=== PATIENT | female | born 1970 | race Caucasian/White ===

== ENCOUNTER 2020-10-08 13:36 | Outpatient (CLI) | payer MEDICAID, SELFPAY ==
--- NOTE | 2020-10-08 13:44 | MM_ITS ---
WS: [id number] BILATERAL DIGITAL SCREENING MAMMOGRAPHY WITH CAD CLINICAL INFORMATION: SCREENING HISTORY: Screening mammogram. No current complaints. COMPARISON: and TECHNIQUE: Bilateral CC and MLO views. FINDINGS: Palpable marker upper outer left breast. The breasts are composed of heterogeneous fibroglandular density tissue, which can limit the detectio n of small underlying mass lesions. Stable small approximately 1 cm nodule right breast unchanged in appearance previously demonstrated t o represent a cyst. Small surrounding nodular densities are unchanged. In the area of palpable concern upper outer left breast increased isodense nodules measuring 1.5 x 1. 5 CM and 2.6 x 2.5 cm with dense surrounding parenchymal density. Recommend further evaluation with l eft breast diagnostic mammography and ultrasound. MM/[place] [id number] IMPRESSION: BI-RADS: 0-Incomplete: Need additional imaging evaluation FOLLOW UP: Need Additional Imaging RECOMMEND LEFT BREAST DIAGNOSTIC MAMMOGRAPHY AND ULTRASOUND IN THE AREA OF PALP ABLE CONCERN LEFT BREAST
== END 2020-10-08 13:37 | disposition home or self-care (01) ==
LOC: RADSHAW 13:42
PROVIDERS: PCP Family Medicine; Visit Provider Internal Medicine
DX: Z12.31 Encounter for screening mammogram for malignant neoplasm of breast (principal); N63.21 Unspecified lump in the left breast, upper outer quadrant
CPT/HCPCS: 77067

== ENCOUNTER → 2020-11-22 10:03 | Outpatient (BNVA) | payer MEDICAID, SELFPAY | PROVIDERS: PCP Nurse Practitioner Family; Referring Provider Anesthesiology Pain Medicine; Visit Provider Orthopaedic Surgery | DX: M47.892 Other spondylosis, cervical region (principal); M54.2 Cervicalgia | CPT/HCPCS: 72050 ==

== ENCOUNTER 2020-11-26 09:25 | Outpatient (CLI) | payer MEDICAID, SELFPAY ==
--- NOTE | 2020-11-26 09:27 | US_ITS ---
WS: [id number] LEFT DIGITAL MAMMOGRAPHY WITH CAD CLINICAL INFORMATION: LT BREAST MASS/LUMP TECHNIQUE: 3 views of the left breast were obtained. FINDINGS: The left breast is composed of heterogeneous fibroglandular density tissue, which can limit the detec tion of small underlying mass lesions. In the area of Palpable concern upper outer left breast again seen are isodense nodules largest measu ring 2.5 x 2.6 cm with dense surrounding parenchymal tissue. Ultrasound is pending. ULTRASOUND BREAST LEFT TECHNIQUE: Ultrasound left breast focused area of concern. CLINICAL INFORMATION: LT BREAST MASS/LUMP COMPARISON: None. FINDINGS: Ultrasound left breast at the 2:00 position. Multiple underlying breast cysts are visualized. Largest simple cyst at the 2:00 position 5 cm from the nipple measuring 2.1 x 2.0 x 0.9 CM. Additional complex cyst at the 2:00 position 4 cm from the nipple measuring 1.7 x 1.5 x 1.1 cm with s ome internal debris. Recommend 6 month interval follow-up of the complex breast cyst with internal debris. Remainder of th e cysts are simple cysts and benign. US/US breast LT limited* [id number] IMPRESSION: BI-RADS: 3-Probably Benign FOLLOW UP: 6 Month Follow-up RECOMMEND 6 MONTH INTERVAL FOLLOW-UP LEFT DIAGNOSTIC MAMMOGRAPHY AND ULTRASOUND OF THE 2.0 CM COMPLEX BREAST CYST WITH INTERNAL DEBRIS.
== END 2020-11-26 09:26 | disposition home or self-care (01) ==
LOC: RADSHAW 09:26
PROVIDERS: PCP Nurse Practitioner Family; Visit Provider Nurse Practitioner Family
DX: N63.20 Unspecified lump in the left breast, unspecified quadrant (principal); N60.02 Solitary cyst of left breast
CPT/HCPCS: 76642; 77065

== ENCOUNTER → 2020-11-29 15:12 | Outpatient (BNVA) | payer MEDICAID, SELFPAY | PROVIDERS: PCP Nurse Practitioner Family; Visit Provider Psychiatry & Neurology Neurology | DX: M54.2 Cervicalgia (principal); G56.01 Carpal tunnel syndrome, right upper limb; Z87.891 Personal history of nicotine dependence | CPT/HCPCS: 95885; 95908 ==

== ENCOUNTER → 2021-03-14 11:55 | Outpatient (BNVA) | payer MEDICAID, SELFPAY | PROVIDERS: PCP Nurse Practitioner Family; Visit Provider Nurse Practitioner Family | DX: Z20.822 Contact with and (suspected) exposure to COVID-19 (principal); J06.9 Acute upper respiratory infection, unspecified; Z20.828 Contact with and (suspected) exposure to other viral communicable diseases | CPT/HCPCS: 87635 ==

== ENCOUNTER 2021-03-15 14:59 | Emergency (ER) | payer MEDICAID, SELFPAY ==
--- NOTE | 2021-03-15 15:35 | XRR_ITS ---
PROCEDURE INFORMATION: Exam: XR Chest Exam date and time: 03/15/2021 3:35 PM Age: 50 years old Clinical indication: Shortness of breath; Patient HX: SOB, cough, n/v; Additional info: SOB, covid TECHNIQUE: Imaging protocol: XR of the chest. Views: 1 view. COMPARISON: CR Chest 1 [place] [id number] 07/17/2018 11:24 AM FINDINGS: Lungs: Unremarkable. No consolidation. Pleural spaces: Unremarkable. No pleural effusion. No pneumothorax. Heart/Mediastinum: Unremarkable. No cardiomegaly. Bones/joints: Unremarkable. XR/XR chest 1V portable [id number] IMPRESSION: No acute findings.
[2021-03-15 15:40] VITALS: BP 125/88; PULSE 91; RESP 16; TEMP 37.3; O2SAT 96; BMI 43.0
--- NOTE | 2021-03-15 21:21 | W.ED.NAVMDI ---
HPI - Nausea/Vomiting/Diarrhea General: Chief complaint: Nausea/Vomiting/Diarrhea Stated complaint: COVID +:SOB, N/V/D Time Seen by Provider: 03/15/21 21:18 History of Present Illness: HPI Narrative: 50-year-old diagnosed with COVID-19 yesterday. She has been having nausea vomiting and diarrhea for about 5 days now. She has been taking Tylenol for fevers and body aches as well. She says that she has had so much diarrhea she cannot make it to the bathroom on time. Her stomach is cramping significantly as well. MD elicited complaint: nausea, vomiting and diarrhea Pertinent past history: other Onset (ago): day(s) Description of vomiting: watery Description of diarrhea: watery Associated nausea: Yes Associated abdominal pain: Yes Location of pain: Diffuse Radiation: diffuse Pain consistency: intermittent Severity: moderate Quality: cramping Relieving factors: none Associated symtoms: Reports fatigue, fecal incontinence, fevers/chills, headache(s), nausea and weakness (General); Denies chest pain, cough or short of breath Review of Systems Const: Reports: fever(s), chills, body aches and fatigue Card: Denies: chest pain Resp: Denies: dyspnea or productive cough GI: Reports: abdominal pain, nausea, vomiting, diarrhea and fecal incontinence; Denies: hematochezia Neuro: Reports: headache(s) PFSH ED PFSH: Family History Mother Diabetes Hypertension Father Lung disease Social History Smoking and tobacco status: former smoker Alcohol intake: never Physical Exam Const: GENERAL APPEARANCE: cooperative and ill appearing ORIENTATION/CONSCIOUSNESS: Yes oriented to person, Yes oriented to place and Yes oriented to time HENMT: COMMON NORMALS: normocephalic, external ears normal and Normal external nose present HEAD & SCALP: normocephalic FACE & SINUS: normal facial exam NOSE: Normal external nose present and No nasal discharge present EXTERNAL EAR: Yes external ears normal Eye: COMMON NORMALS: Equal, round and reactive pupils present, EOMs intact bilaterally and conjunctivae normal EYELID: eyelids normal CONJUNCTIVA: Yes conjunctivae normal PUPIL: Yes Equal, round and reactive pupils present Neck/C-Spine: GENERAL: No tracheal deviation Chest: COMMONS NORMALS: normal inspection of the chest CHEST: No tenderness Resp: COMMON NORMALS: clear to auscultation bilaterally EFFORT & INSPECTION: No tachypneic, No respiratory distress, No retractions, No uses accessory muscles and No tracheal deviation AUSCULTATION: clear to auscultation bilaterally, no rhonchi, no wheezes and lung sounds not diminished Cardio: COMMON NORMALS: regular rate and regular rhythm RATE: regular rate RHYTHM: regular rhythm HEART SOUNDS: no murmurs PERIPHERAL PULSES: radial pulses present GI: INSPECTION: No abdominal distension AUSCULTATION: Yes Hyperactive bowel sounds present and No Hypoactive bowel sounds present PALPATION: Yes Guarding due to palpation present (GI) and No Rigid due to palpation Neuro: SENSORIUM/ORIENTATION: Yes oriented to person, Yes oriented to place and Yes oriented to time Psych: COMMON NORMALS: mental status grossly normal Skin: COMMON NORMALS: no rashes or lesions noted GENERAL SKIN EXAM: no rashes or lesions noted Course Vital Signs: Vital signs: Vital Signs Temperature 99.2 F 03/15/21 15:40 Pulse Rate 91 03/15/21 15:40 Respiratory Rate 20 H 03/15/21 22:10 Blood Pressure 125/88 03/15/21 15:40 Pulse Oximetry 96 03/15/21 15:40 MDM - Nausea/Vomiting/Diarrhea MDM Narrative: Medical decision making narrative: Labs are consistent with COVID-19. Chest x-ray is negative. Symptoms are improved after fluid. She will be allowed home. As she meets obesity criteria, she will be asked to return as an outpatient for monoclonal antibody infusion should she choose to do so. Symptomatic treatment until then. Lab Data: Labs: Lab Results 03/15/21 03/15/21 Range/Units 21:50 21:50 WBC 3.0 L (4.0-10.0) 10^3/ uL RBC 3.58 L (4.1-5.3) 10^6/u L Hgb 9.7 L (11.5-15.3) g/dL Hct 32.4 L (37.0-47.0) % MCV 90.5 (81-99) fL MCH 27.1 L (28.0-34.0) pg MCHC 29.9 L (30.0-36.0) g/dL RDW 15.1 (12.1-15.1) % Plt Count 280 (130-400) 10^3/c mm MPV 9.7 (7.4-10.4) fL Neut % (Auto) 69.0 % Lymph % (Auto) 20.2 % [place] % (Auto) 9.9 % Eos % (Auto) 0.3 % Baso % (Auto) 0.3 % Neut # (Auto) 2.08 (1.8-7.7) 10^3/u L Lymph # (Auto) 0.6 L (0.8-4.8) 10^3/u L [place] # (Auto) 0.3 (0.2-0.9) 10^3/u L Eos # (Auto) 0.0 (0.0-0.8) 10^3/u L Baso # (Auto) 0.0 (0.0-0.1) 10^3/u L Nucleated RBC % (a uto) 0 % Nucleated RBCs # 0.0 /100WBC Sodium 137 (136-145) mmol/L Potassium 3.9 (3.5-5.1) mmol/L Chloride 104 (98-107) mmol/L Carbon Dioxide 21 L (22-29) mmol/L Anion Gap 15.9 (5-19) BUN 8 (6-20) mg/dL Creatinine 1.0 H (0.5-0.9) mg/dL GFR Calculation 58.9 L (90-130) mL/min Glucose 130 H (65-115) mg/dL Calculated Osmolal ity 284 L (285-295) mOsm/k g Calcium 8.3 L (8.5-10.5) mg/dL Total Bilirubin 0.3 (0.15-1.2) mg/dL AST 48 H (0-32) U/L ALT 42 H (0-33) U/L Alkaline Phosphata se 66 (35-105) IU/L Total Protein 7.1 (6.6-8.7) g/dL Albumin 3.9 (3.5-5.2) g/dL Globulin 3.2 (1.3-4.6) g/dL Discharge Plan Discharge Patient Disposition: Home Clinical Impression: COVID-19, Gastroenteritis Condition: Stable Prescriptions: New Lomotil 2.5-0.025 mg tablet 1 tab PO Q8H PRN (Reason: diarrhea) Qty: 10 RF: 0 Zofran 4 mg tablet 4 mg PO Q6H PRN (Reason: nausea and vomiting) Qty: 10 RF: 0 hydrocodone-acetaminophen 5-325 mg tablet 1 tab PO Q8H PRN (Reason: pain) Qty: 7 RF: 0 Discharge Orders: Discharge ED (Routine); Ordered 03/15/21 Ordered By: Nando Munson Referrals: Mar Jose ASSISTANT BASKETBALL COACH [Primary Care Provider] - 4-7 days Discharge Diet: Advance as tolerated Discharge Activity: Resume usual activity Patient Instructions: Gastroenteritis (ED) Activity Restrictions/Additional Instructions: You should get a call from our case management team regarding coming back as an outpatient for monoclonal antibody infusion. Symptomatic treatment with medications as directed. Return for worsening shortness of breath, worsening diarrhea and vomiting despite treatment, other concerning symptoms. Coding Level of Care Code ED Telecommunication Lines Repairer for [place] Fwd Exam Comprehensive
[2021-03-15 22:00] VITALS: BP 149/76; PULSE 89; RESP 18; O2SAT 94
[2021-03-15 22:08] LABS: Basophils % 0.3 %; Eosinophils % 0.3 %; Hematocrit 32.4 % (37.0-47.0); Hemoglobin 9.7 g/dL (11.5-15.3); Lymphocytes # 0.6 10^3/uL (0.8-4.8); Lymphocytes % 20.2 %; Mean Corpuscular HGB Conc 29.9 g/dL (30.0-36.0); Mean Corpuscular Hemoglobin 27.1 pg (28.0-34.0); Mean Corpuscular Volume 90.5 fL (81-99); Mean Platelet Volume 9.7 fL (7.4-10.4); Monocytes # 0.3 10^3/uL (0.2-0.9); Monocytes % 9.9 %; Neutrophils # 2.08 10^3/uL (1.8-7.7); Nucleated Red Blood Cells % 0 %; Platelet Count 280 10^3/cmm (130-400); Red Blood Count 3.58 10^6/uL (4.1-5.3); Red Cell Distribution Width 15.1 % (12.1-15.1)
[2021-03-15 22:10] VITALS: RESP 20
[2021-03-15] MEDS: morphine 4 mg/mL SDV 1 mL IVP (22:10)
[2021-03-15] MEDS: sodium chloride 0.9% 1,000 ML 999 ML IV (22:10)
[2021-03-15] MEDS: ondansetron 2 mg/ML SDV 2 mL 4 MG IVP (22:11)
[2021-03-15 22:24] LABS: Alanine Aminotransferase 42 U/L (0-33); Albumin Level 3.9 g/dL (3.5-5.2); Alkaline Phosphatase 66 IU/L (35-105); Anion Gap 15.9 (5-19); Aspartate Amino Transferase 48 U/L (0-32); Blood Urea Nitrogen 8 mg/dL (6-20); Calcium 8.3 mg/dL (8.5-10.5); Carbon Dioxide 21 mmol/L (22-29); Chloride 104 mmol/L (98-107); Globulin 3.2 g/dL (1.3-4.6); Glomerular Filtration Rate 58.9 mL/min (90-130); Glucose 130 mg/dL (65-115); Osmolality Calculated 284 mOsm/kg (285-295); Potassium 3.9 mmol/L (3.5-5.1); Sodium 137 mmol/L (136-145); Total Bilirubin 0.3 mg/dL (0.15-1.2); Total Protein 7.1 g/dL (6.6-8.7)
--- NOTE | 2021-03-15 23:15 | PC.NURSE ---
patient has declined MCA therapy
[2021-03-15 23:44] VITALS: BP 114/60; PULSE 105; RESP 18; TEMP 37.7; O2SAT 93
== END 2021-03-15 23:57 | disposition home or self-care (01) ==
PROVIDERS: Nurse Practitioner Family; Emergency Provider Emergency Medicine; PCP Nurse Practitioner Family
DX: U07.1 COVID-19 (principal); K52.9 Noninfective gastroenteritis and colitis, unspecified; E66.9 Obesity, unspecified; Z68.41 Body mass index [BMI] 40.0-44.9, adult
CPT/HCPCS: 71045; 80053; 85025; 96365; 96375; 99284; J2270; J2405; J7030

== ENCOUNTER 2021-08-15 12:11 | Outpatient (CLI) | payer MEDICAID, SELFPAY ==
--- NOTE | 2021-08-15 12:32 | MM_ITS ---
WS: [id number] LEFT DIGITAL MAMMOGRAPHY WITH CAD CLINICAL INFORMATION: ABNORMAL MAMMO/NODULES COMPARISON: November 26, 2020 TECHNIQUE: 4 views of the left breast were obtained. FINDINGS: The left breast is composed of heterogeneous fibroglandular density tissue, which can limit the detec tion of small underlying mass lesions. Ovoid nodules upper outer left breast in the area of palpable concern decreased in size compared to previous. Ultrasound is pending. ULTRASOUND BREAST LEFT TECHNIQUE: Ultrasound left breast focused area of concern. CLINICAL INFORMATION: ABNORMAL MAMMO/NODULES COMPARISON: November 26, 2020 FINDINGS: Previously described complex cyst at 2:00 position 5 cm from the nipple has resolved. Incidental cyst 2:00 position 3 cm from the nipple measuring 0.8 x 0.6 cm Additional simple appearing cyst today at the 1:00 position 1cm from the nipple measuring 1.5 x 0.7 x 1.1 cm Hypoechoic lesion at the 1:00 position 3 cm from the nipple not definitely cystic measuring 0.7 x 0.5 x 0.5 CM. This may represent a complex cyst and recommend 6 month follow-up ultrasound MM/[place] [id number] IMPRESSION: BI-RADS: 3-Probably Benign FOLLOW UP: 6 Month Follow-up RECOMMEND 6 MONTH FOLLOW-UP ULTRASOUND LEFT BREAST WITH ATTENTION TO THE 1:00 L ESION 3 CENTIM[facility]ERS FROM THE NIPPLE SEEN TODAY
--- NOTE | 2021-08-15 12:41 | US_ITS ---
WS: [id number] LEFT DIGITAL MAMMOGRAPHY WITH CAD CLINICAL INFORMATION: ABNORMAL MAMMO/NODULES COMPARISON: November 26, 2020 TECHNIQUE: 4 views of the left breast were obtained. FINDINGS: The left breast is composed of heterogeneous fibroglandular density tissue, which can limit the detec tion of small underlying mass lesions. Ovoid nodules upper outer left breast in the area of palpable concern decreased in size compared to previous. Ultrasound is pending. ULTRASOUND BREAST LEFT TECHNIQUE: Ultrasound left breast focused area of concern. CLINICAL INFORMATION: ABNORMAL MAMMO/NODULES COMPARISON: November 26, 2020 FINDINGS: Previously described complex cyst at 2:00 position 5 cm from the nipple has resolved. Incidental cyst 2:00 position 3 cm from the nipple measuring 0.8 x 0.6 cm Additional simple appearing cyst today at the 1:00 position 1cm from the nipple measuring 1.5 x 0.7 x 1.1 cm Hypoechoic lesion at the 1:00 position 3 cm from the nipple not definitely cystic measuring 0.7 x 0.5 x 0.5 CM. This may represent a complex cyst and recommend 6 month follow-up ultrasound US/US breast LT limited* [id number] IMPRESSION: BI-RADS: 3-Probably Benign FOLLOW UP: 6 Month Follow-up RECOMMEND 6 MONTH FOLLOW-UP ULTRASOUND LEFT BREAST WITH ATTENTION TO THE 1:00 L ESION 3 [facility]IM[facility]ERS FROM THE NIPPLE SEEN TODAY
== END 2021-08-15 12:12 | disposition home or self-care (01) ==
LOC: RADSHAW 12:17
PROVIDERS: PCP Nurse Practitioner Family; Visit Provider Nurse Practitioner Family
DX: R92.8 Other abnormal and inconclusive findings on diagnostic imaging of breast (principal); N63.22 Unspecified lump in the left breast, upper inner quadrant
CPT/HCPCS: 76642; 77065

== ENCOUNTER 2021-11-24 18:06 | Emergency (ER) | payer MEDICAID, SELFPAY ==
[2021-11-24 18:09] VITALS: BP 135/75; PULSE 89; RESP 15; O2SAT 94
--- NOTE | 2021-11-24 18:21 | W.ED.GENADLT ---
HPI - General Adult General: Chief complaint: Overdose Stated complaint: POSS OVERDOSE Time Seen by Provider: 11/24/21 18:11 Source: patient and EMS Mode of arrival: EMS Limitations: no limitations History of Present Illness: 51-year-old female who states that she has balloting from 2019 and is extremely sensitive to it but wanted to take 1 tonight try to sleep she end up taking 2 of the Valium pills. She takes them earlier today and family states they are having a difficult time arousing her. Patient is lethargic here but will awake to stimuli and answers all my questions appropriately she states she was just trying to sleep but then does just fall right back to sleep. Denies any other ingestion denies suicide attempt. Associated symptoms: Deny chest pain, dyspnea, headache(s), nausea, rash or vomiting Review of Systems Const: Reports: fatigue Eyes: Denies: blurry vision or eye discomfort ENMT: Denies: throat pain or dental pain Card: Denies: chest pain Resp: Denies: dyspnea GI: Denies: abdominal pain, nausea, vomiting or diarrhea : Denies: dysuria Musc: Denies: neck pain or back pain Skin/Breast: Denies: rash Neuro: Denies: headache(s) Psych: Denies: depression Boris/Lymph: Denies: easy bruising All/Imm: Denies: urticaria PFSH ED PFSH: Family History Mother Diabetes Hypertension Father Lung disease Social History Smoking and tobacco status: former smoker Alcohol intake: never Physical Exam Const: COMMON NORMALS: no acute distress, patient oriented x3 and healthy appearing GENERAL APPEARANCE: lethargic ORIENTATION/CONSCIOUSNESS: Yes lethargic HENMT: COMMON NORMALS: normocephalic and atraumatic HEAD & SCALP: normocephalic and atraumatic Eye: COMMON NORMALS: Equal, round and reactive pupils present and EOMs intact bilaterally PUPIL: Yes Equal, round and reactive pupils present Neck/C-Spine: COMMON NORMALS: full ROM and supple Chest: COMMONS NORMALS: normal inspection of the chest and normal palpation of entire chest wall Resp: COMMON NORMALS: normal respiratory effort, No retractions, No use of accessory muscles and clear to auscultation bilaterally AUSCULTATION: clear to auscultation bilaterally Cardio: COMMON NORMALS: regular rate, regular rhythm and No murmurs present (Cardio) RATE: regular rate RHYTHM: regular rhythm GI: COMMON NORMALS: Normal to inspection, nondistended, normoactive bowel sounds present, Soft to palpation, non-tender and no masses PALPATION: Yes Soft to palpation Extremity: COMMON NORMALS: normal to inspection and full ROM Neuro: COMMON NORMALS: patient oriented x3, moves all extremities and no focal motor deficits SENSORIUM/ORIENTATION: Yes lethargic OTHER: Patient is lethargic but will wake to sternal rub and answers all my questions but then falls back asleep Psych: COMMON NORMALS: Normal thought process present and cooperative THOUGHT PROCESS: Normal thought process present Skin: COMMON NORMALS: no rashes or lesions noted and no wounds GENERAL SKIN EXAM: no rashes or lesions noted Course Vital Signs: Vital signs: Vital Signs Pulse Rate 89 11/24/21 18:09 Respiratory Rate 15 11/24/21 18:09 Blood Pressure 135/75 11/24/21 18:09 Pulse Oximetry 94 11/24/21 18:09 [facility] - General Adult Medical Decision Making Patient presents with accidental overdose on Valium she had not taken in quite some time and is very sensitive to it at baseline took 2 tonight to try to go to sleep patient preserved here she is now awake and alert she is not suicidal she is well-appearing here. She is able ambulate answer all questions stable for discharge follow-up with PCP and return if worsening. Lab Data : 11/24/21 17:47 11/24/21 17:47 Laboratory Results WBC 6.6 10^3/uL (4.0-10.0) 11/24/21 17:47 RBC 3.92 10^6/uL (4.1-5.3) L 11/24/21 17:47 Hgb 11.3 g/dL (11.5-15.3) L 11/24/21 17:47 Hct 35.4 % (37.0-47.0) L 11/24/21 17:47 MCV 90.3 fl (81-99) 11/24/21 17:47 MCH 28.8 pg (28.0-34.0) 11/24/21 17:47 MCHC 31.9 g/dL (30.0-36.0) 11/24/21 17:47 RDW 13.5 % (12.1-15.1) 11/24/21 17:47 Plt Count 421 10^3/cmm (130-400) H 11/24/21 17:47 MPV 9.4 fL (7.4-10.4) 11/24/21 17:47 Neut % (Auto) 65.0 % 11/24/21 17:47 Lymph % (Auto) 21.7 % 11/24/21 17:47 [place] % (Auto) 8.7 % 11/24/21 17:47 Eos % (Auto) 3.5 % 11/24/21 17:47 Baso % (Auto) 0.8 % 11/24/21 17:47 Neut # (Auto) 4.28 10^3/uL (1.8-7.7) 11/24/21 17:47 Lymph # (Auto) 1.4 10^3/uL (0.8-4.8) 11/24/21 17:47 [place] # (Auto) 0.6 10^3/uL (0.2-0.9) 11/24/21 17:47 Eos # (Auto) 0.2 10^3/uL (0.0-0.8) 11/24/21 17:47 Baso # (Auto) 0.1 10^3/uL (0.0-0.1) 11/24/21 17:47 Nucleated RBC % (auto) 0 % 11/24/21 17:47 Nucleated RBCs # 0.0 /100WBC 11/24/21 17:47 Sodium 142 mmol/L (136-145) 11/24/21 17:47 Potassium 4.1 mmol/L (3.5-5.1) 11/24/21 17:47 Chloride 105 mmol/L (98-107) 11/24/21 17:47 Carbon Dioxide 25 mmol/L (22-29) 11/24/21 17:47 Anion Gap 16.1 (5-19) 11/24/21 17:47 BUN 10 mg/dL (6-20) 11/24/21 17:47 Creatinine 1.0 mg/dL (0.5-0.9) H 11/24/21 17:47 GFR Calculation 58.7 mL/min (90-130) L 11/24/21 17:47 Glucose 138 mg/dL (65-115) H 11/24/21 17:47 Calculated Osmolality 295 mOsm/kg (285-295) 11/24/21 17:47 Calcium 10.4 mg/dL (8.5-10.5) 11/24/21 17:47 Total Bilirubin 0.5 mg/dL (0.15-1.2) 11/24/21 17:47 AST 26 U/L (0-32) 11/24/21 17:47 ALT 27 U/L (0-33) 11/24/21 17:47 Alkaline Phosphatase 68 IU/L (35-105) 11/24/21 17:47 Total Protein 7.4 g/dL (6.6-8.7) 11/24/21 17:47 Albumin 4.8 g/dL (3.5-5.2) 11/24/21 17:47 Globulin 2.6 g/dL (1.3-4.6) 11/24/21 17:47 Salicylates 0.6 mg/dL (3-10) L 11/24/21 17:47 Acetaminophen < 5.0 ug/mL (10-30) L 11/24/21 17:47 Ethyl Alcohol < 10 mg/dL (0-10) 11/24/21 17:47 Discharge Plan Discharge Patient Disposition: Home Clinical Impression: Drug overdose Condition: Stable Prescriptions: No Action Lomotil 2.5-0.025 mg tablet 1 tab PO Q8H PRN (Reason: diarrhea) Qty: 10 0RF Zofran 4 mg tablet 4 mg PO Q6H PRN (Reason: nausea and vomiting) Qty: 10 0RF hydrocodone-acetaminophen 5-325 mg tablet 1 tab PO Q8H PRN (Reason: pain) Qty: 7 0RF Discharge Orders: Discharge ED (Routine); Ordered 11/24/21 Ordered By: Kerry Maddox Referrals: Mar Jose FNP [Primary Care Provider] - Discharge Diet: Advance as tolerated Discharge Activity: Resume usual activity Patient Instructions: Adult Overdose (ED) Coding Level of Care Code ED Clinical Research Technician for Chg Fwd Exam Comprehensive
[2021-11-24 18:31] LABS: Basophils # 0.1 10^3/uL (0.0-0.1); Basophils % 0.8 %; Eosinophils # 0.2 10^3/uL (0.0-0.8); Eosinophils % 3.5 %; Hematocrit 35.4 % (37.0-47.0); Hemoglobin 11.3 g/dL (11.5-15.3); Lymphocytes # 1.4 10^3/uL (0.8-4.8); Lymphocytes % 21.7 %; Mean Corpuscular HGB Conc 31.9 g/dL (30.0-36.0); Mean Corpuscular Hemoglobin 28.8 pg (28.0-34.0); Mean Corpuscular Volume 90.3 fl (81-99); Mean Platelet Volume 9.4 fL (7.4-10.4); Monocytes # 0.6 10^3/uL (0.2-0.9); Monocytes % 8.7 %; Neutrophils # 4.28 10^3/uL (1.8-7.7); Nucleated Red Blood Cells % 0 %; Platelet Count 421 10^3/cmm (130-400); Red Blood Count 3.92 10^6/uL (4.1-5.3); Red Cell Distribution Width 13.5 % (12.1-15.1); White Blood Count 6.6 10^3/uL (4.0-10.0)
[2021-11-24 18:46] LABS: Alanine Aminotransferase 27 U/L (0-33); Albumin Level 4.8 g/dL (3.5-5.2); Alkaline Phosphatase 68 IU/L (35-105); Anion Gap 16.1 (5-19); Aspartate Amino Transferase 26 U/L (0-32); Blood Urea Nitrogen 10 mg/dL (6-20); Calcium 10.4 mg/dL (8.5-10.5); Carbon Dioxide 25 mmol/L (22-29); Chloride 105 mmol/L (98-107); Globulin 2.6 g/dL (1.3-4.6); Glomerular Filtration Rate 58.7 mL/min (90-130); Glucose 138 mg/dL (65-115); Osmolality Calculated 295 mOsm/kg (285-295); Potassium 4.1 mmol/L (3.5-5.1); Salicylate 0.6 mg/dL (3-10); Sodium 142 mmol/L (136-145); Total Bilirubin 0.5 mg/dL (0.15-1.2); Total Protein 7.4 g/dL (6.6-8.7)
[2021-11-24 18:47] LABS: Acetaminophen < 5.0 ug/mL (10-30); Alcohol Level < 10 mg/dL (0-10)
[2021-11-24 20:09] VITALS: BP 130/76
== END 2021-11-24 20:10 | disposition home or self-care (01) ==
PROVIDERS: Emergency Provider Emergency Medicine; PCP Nurse Practitioner Family
DX: T42.4X1A Poisoning by benzodiazepines, accidental (unintentional), initial encounter (principal)
CPT/HCPCS: 80053; 80307; 85025; 99283

== ENCOUNTER 2022-02-25 08:47 | Outpatient (CLI) | payer MEDICAID, SELFPAY ==
--- NOTE | 2022-02-25 08:54 | US_ITS ---
WS: [id number] ULTRASOUND LEFT BREAST HISTORY: 6 MO F/U LT ABNORMAL MAMMOGRAM COMPARISON: 08/15/2021 TECHNIQUE: 2-D and Doppler. Multiple simple cysts are noted in the LEFT breast in the upper-outer quadrant. The hypoechoic nodule described on the prior examination for which follow-up is recommended measures 6 x 4 x 5 mm. Very si milar to the prior study. This is not a simple cyst. US/US breast LT limited* [id number] IMPRESSION: BI-RADS: 3-Probably Benign FOLLOW-UP: 6 Month Follow-up Recommend ultrasound evaluation of the hypoechoic lesion LEFT breast at 1:00, 3 cm from the nipple. No interval change or increase in size.
== END 2022-02-25 08:48 | disposition home or self-care (01) ==
LOC: RAD 08:49
PROVIDERS: PCP Nurse Practitioner Family; Visit Provider Nurse Practitioner Family
DX: R92.8 Other abnormal and inconclusive findings on diagnostic imaging of breast (principal); N60.02 Solitary cyst of left breast
CPT/HCPCS: 76642

== ENCOUNTER → 2022-03-18 10:11 | Outpatient (BNVA) | payer MEDICAID, SELFPAY | PROVIDERS: PCP Nurse Practitioner Family; Visit Provider Orthopaedic Surgery | DX: G56.22 Lesion of ulnar nerve, left upper limb (principal); M25.522 Pain in left elbow | CPT/HCPCS: 99203 ==

== ENCOUNTER → 2022-04-30 07:37 | Outpatient (BNVA) | payer MEDICAID, SELFPAY | PROVIDERS: PCP Nurse Practitioner Family; Referring Provider Orthopaedic Surgery; Visit Provider Specialist | DX: M25.532 Pain in left wrist (principal) | CPT/HCPCS: 95908; 95909 ==

== ENCOUNTER → 2022-05-15 08:13 | Outpatient (BNVA) | payer MEDICAID, SELFPAY | PROVIDERS: PCP Nurse Practitioner Family; Visit Provider Orthopaedic Surgery | DX: M47.22 Other spondylosis with radiculopathy, cervical region (principal) | CPT/HCPCS: 72050; 99213 ==

== ENCOUNTER 2022-05-19 18:45 | Emergency (ER) | payer MEDICAID, SELFPAY ==
[2022-05-19 19:14] VITALS: BP 145/84; PULSE 105; RESP 20; TEMP 36.3; O2SAT 96; BMI 43.0
[2022-05-19 21:00] VITALS: BP 174/92; PULSE 101; RESP 18; O2SAT 96
--- NOTE | 2022-05-19 21:00 | CTR_ITS ---
PROCEDURE INFORMATION: Exam: CT Neck With Contrast Exam date and time: 05/19/2022 9:39 PM Age: 51 years old Clinical indication: Mass, lump, or swelling in neck; Right; Painful swallowing; Patient HX: C/O RT facial pain with swelling to RT submandibular region. ; Additional info: Right facial swelling TECHNIQUE: Imaging protocol: Computed tomography of the neck with contrast. Radiation optimization: All CT scans at this facility use at least one of these dose optimization techniques: automated exposure control; mA and/or kV adjustment per patient size (includes targeted exams where dose is matched to clinical indication); or iterative reconstruction. Contrast material: OMNI 350; Contrast volume: 80 ml; Contrast route: INTRAVENOUS (IV); COMPARISON: CT cervical spine w con [id number] 07/21/2017 10:48 AM RADIATION DOSE METRICS: Total DLP (mGy-cm): 239.61 FINDINGS: Paranasal sinuses: Small mucous retention cyst or small polyp in the left maxillary sinus. Mild mucosal thickening in the ethmoid air cells. Dental: There are scattered dental caries, with involvement of the right mandibular 1st premolar and the right 1st and 2nd mandibular molars. Pharynx: Unremarkable. No significant tonsillar enlargement. Larynx: Unremarkable. Epiglottis is normal. Prevertebral and retropharyngeal spaces: Unremarkable. Salivary glands: Normal. Glands are normal in size. Thyroid: Normal. No enlarged or calcified nodules. Lymph nodes: Scattered subcentimeter cervical lymph nodes.. No cervical lymphadenopathy by CT size criteria. Trachea: Visualized trachea is unremarkable. Lungs: Unremarkable as visualized. Bones/joints: Mild anterolisthesis of C4 on C5. Borderline developmental cervical spinal canal stenosis and superimposed multilevel degenerative disc and joint disease.. No acute fracture. Soft tissues: There is prominent overlaying soft tissue swelling and fat stranding involving the right submandibular region. No well-defined peripherally enhancing fluid collection to suggest joaquim abscess formation. . CT/CT neck w con* [id number] IMPRESSION: 1. Right submandibular cellulitis, likely odontogenic in nature. No peripherally enhancing fluid collection to suggest joaquim abscess formation. 2. Small bilateral lymph nodes, nonspecific and likely reactive. 3. Cervical spondylosis.
--- NOTE | 2022-05-19 21:02 | ED_ITS ---
HPI - Headache General: Chief Complaint: Headache Stated Complaint: Headpain, Fever, Swollen face Time Seen by Provider: 05/19/22 20:56 Source: patient Mode of arrival: ambulatory Limitations: no limitations History of Present Illness: 51-year-old female who states she has been having right dental pain for the last 2 days states she seen her nurse practitioner this morning and started on antibiotics but states her swelling is increased she does have right facial swelling chest pain she rates an 8 out of 10 she states she is trying to get into see a dentist she has had dental abscesses in the past denies any difficulty swallowing. Associated symptoms: Deny chest pain, fever(s), nausea, rash or vomiting Review of Systems Const: Denies: fever(s), chills, body aches or change in appetite Eyes: Denies: blurry vision or eye discomfort ENMT: Reports: dental pain Card: Denies: chest pain Resp: Denies: dyspnea GI: Denies: abdominal pain, nausea, vomiting or diarrhea : Denies: dysuria Musc: Denies: neck pain or back pain Skin/Breast: Denies: rash Neuro: Denies: headache(s) Psych: Denies: depression Boris/Lymph: Denies: easy bruising All/Imm: Denies: urticaria PFSH ED PFSH: Medical History High cholesterol Family History Mother Diabetes Hypertension Father Lung disease Social History Smoking and tobacco status: never smoked Alcohol intake: never History of recent travel: No Physical Exam Const: COMMON NORMALS: no acute distress, patient oriented x3 and healthy appearing HENMT: COMMON NORMALS: normocephalic and atraumatic HEAD & SCALP: normo cephalic and atraumatic OTHER: Dental caries tenderness to right lower molar does have swelling into the right neck and right lower side of her face tenderness to touch Eye: COMMON NORMALS: conjunctivae normal CONJUNCTIVA: Yes conjunctivae normal Neck/C-Spine: COMMON NORMALS: full ROM and supple Chest: COMMONS NORMALS: normal inspection of the chest Resp: COMMON NORMALS: normal respiratory effort Cardio: COMMON NORMALS: regular rate and No murmurs present (Cardio) RATE: regular rate GI: INSPECTION: Yes normal to inspection Extremity: COMMON NORMALS: normal to inspection and full ROM Neuro: COMMON NORMALS: patient oriented x3, moves all extremities and no focal motor deficits Psych: COMMON NORMALS: mental status grossly normal, Normal thought process present and cooperative THOUGHT PROCESS: Normal thought process present Skin: COMMON NORMALS: no rashes or lesions noted and no wounds GENERAL SKIN EXAM: no rashes or lesions noted Course Vital Signs: Vital signs: Vital Signs Temperature 97.4 F L 05/19/22 19:14 Pulse Rate 86 05/19/22 21:31 Respiratory Rate 18 05/19/22 21:31 Blood Pressure 174/82 05/19/22 21:31 Pulse Oximetry 94 05/19/22 21:31 Oxygen Delivery Me thod 05/19/22 21:31 MDM - Headache Medical Decision Making Patient presents with a dental infection CT showed no signs of abscess did you give her dose of IV antibiotic she is to follow-up with a dentist we will prescribe her pain meds she has no trismus no difficulty swallowing. Lab Data : 05/19/22 21:09 05/19/22 21:[address] 05/19/22 21:00 IMPRESSION: 1. Right submandibular cellulitis, likely odontogenic in nature. No peripherally enhancing fluid collection to suggest joaquim abscess formation. 2. Small bilateral lymph nodes, nonspecific and likely reactive. 3. Cervical spondylosis. Laboratory Results WBC 10.0 10^3/uL (4.0-10.0) 05/19/22 21:09 RBC 3.68 10^6/uL (4.1-5.3) L 05/19/22 21:09 Hgb 10.7 g/dL (11.5-15.3) L 05/19/22 21:09 Hct 35.4 % (37.0-47.0) L 05/19/22 21:09 MCV 96.2 fl (81-99) 05/19/22 21:09 MCH 29.1 pg (28.0-34.0) 05/19/22 21:09 MCHC 30.2 g/dL (30.0-36.0) 05/19/22 21:09 RDW 14.7 % (12.1-15.1) 05/19/22 21:09 Plt Count 356 10^3/cmm (130-400) 05/19/22 21:09 MPV 9.5 fL (7.4-10.4) 05/19/22 21:09 Neut % (Auto) 75.1 % 05/19/22 21:09 Lymph % (Auto) 16.0 % 05/19/22 21:09 [place]affee % (Auto) 7.3 % 05/19/22 21:09 Eos % (Auto) 1.0 % 05/19/22 21:09 Baso % (Auto) 0.4 % 05/19/22 21:09 Neut # (Auto) 7.47 10^3/uL (1.8-7.7) 05/19/22 21:09 Lymph # (Auto) 1.6 10^3/uL (0.8-4.8) 05/19/22 21:09 [place]affee # (Auto) 0.7 10^3/uL (0.2-0.9) 05/19/22 21:09 Eos # (Auto) 0.1 10^3/uL (0.0-0.8) 05/19/22 21:09 Baso # (Auto) 0.0 10^3/uL (0.0-0.1) 05/19/22 21:09 Nucleated RBC % (auto) 0 % 05/19/22 21:09 Nucleated RBCs # 0.0 /100WBC 05/19/22 21:09 Sodium 137 mmol/L (136-145) 05/19/22 21:32 Potassium 3.9 mmol/L (3.5-5.1) 05/19/22 21:32 Chloride 101 mmol/L (98-107) 05/19/22 21:32 Carbon Dioxide Cancelled 05/19/22 21:09 Anion Gap Cancelled 05/19/22 21:09 BUN Cancelled 05/19/22 21:09 Creatinine Cancelled 05/19/22 21:09 GFR Calculation Cancelled 05/19/22 21:09 Glucose Cancelled 05/19/22 21:09 Calculated Osmolality Cancelled 05/19/22 21:09 Calcium Cancelled 05/19/22 21:09 Discharge Plan Discharge Patient Disposition: Home Clinical Impression: Dental infection Condition: Stable Prescriptions: New hydrocodone-acetaminophen 5-325 mg tablet 1 tab PO Q6H PRN (Reason: pain) Qty: 14 0RF No Action oxycodone-acetaminophen [Percocet] 7.5-325 mg tablet 1 tab PO Q6H PRN cholecalciferol (vitamin D3) 1,250 mcg (50,000 unit) capsule 1,250 mcg PO .weekly Discharge Orders: Discharge ED (Routine); Ordered 05/19/22 Ordered By: Kerry Maddox Referrals: Mar Jose INTERNAL SALESPERSON [Primary Care Provider] - Discharge Diet: Advance as tolerated Discharge Activity: Resume usual activity Patient Instructions: Toothache (ED) Coding Level of Care Code ED Molding Machine Setter for Donavon Fwd Exam Comprehensive
[2022-05-19 21:07] VITALS: RESP 18; O2SAT 96
[2022-05-19] MEDS: HYDROmorphone 1 mg/mL INJ 1 mL 0.5 MG IVP (21:07)
[2022-05-19] MEDS: ondansetron 2 mg/ML SDV 2 mL 4 MG IVP ×2 (21:07→22:41)
[2022-05-19] MEDS: clindamycin 900 MG/50 ML PREMIX 100 MG IV (21:11)
[2022-05-19 21:14] LABS: Basophils % 0.4 %; Eosinophils # 0.1 10^3/uL (0.0-0.8); Hematocrit 35.4 % (37.0-47.0); Hemoglobin 10.7 g/dL (11.5-15.3); Lymphocytes # 1.6 10^3/uL (0.8-4.8); Mean Corpuscular HGB Conc 30.2 g/dL (30.0-36.0); Mean Corpuscular Hemoglobin 29.1 pg (28.0-34.0); Mean Corpuscular Volume 96.2 fl (81-99); Mean Platelet Volume 9.5 fL (7.4-10.4); Monocytes # 0.7 10^3/uL (0.2-0.9); Monocytes % 7.3 %; Neutrophils # 7.47 10^3/uL (1.8-7.7); Neutrophils % 75.1 %; Nucleated Red Blood Cells % 0 %; Platelet Count 356 10^3/cmm (130-400); Red Blood Count 3.68 10^6/uL (4.1-5.3); Red Cell Distribution Width 14.7 % (12.1-15.1)
[2022-05-19 21:31] VITALS: BP 174/82; PULSE 86; RESP 18; O2SAT 94
[2022-05-19] MEDS: iohexol 350 mg/mL 100 mL Btl IV (21:45)
[2022-05-19 22:11] LABS: Chloride 101 mmol/L (98-107); Potassium 3.9 mmol/L (3.5-5.1); Sodium 137 mmol/L (136-145)
[2022-05-19 23:49] VITALS: BP 124/60; PULSE 80; RESP 16; O2SAT 96
[2022-05-19 23:54] LABS: Anion Gap 18.9 (5-19); Blood Urea Nitrogen 8 mg/dL (6-20); Calcium 9.2 mg/dL (8.5-10.5); Carbon Dioxide 21 mmol/L (22-29); Glomerular Filtration Rate 58.7 mL/min (90-130); Glucose 127 mg/dL (65-115); Osmolality Calculated 284 mOsm/kg (285-295)
== END 2022-05-19 23:50 | disposition home or self-care (01) ==
PROVIDERS: Emergency Provider Emergency Medicine; PCP Nurse Practitioner Family
DX: K04.7 Periapical abscess without sinus (principal)
CPT/HCPCS: 70491; 80048; 85025; 96365; 96375; 96376; 99285; J1170; J2405; J3490; Q9967

== ENCOUNTER → 2022-06-26 08:42 | Outpatient (BNVA) | payer MEDICAID, SELFPAY | PROVIDERS: PCP Nurse Practitioner Family; Visit Provider Orthopaedic Surgery | DX: M77.12 Lateral epicondylitis, left elbow (principal) | CPT/HCPCS: 99213 ==

== ENCOUNTER 2022-07-17 20:00 | Outpatient (CLI) | payer MEDICAID, SELFPAY | END 2022-07-17 20:01 | disposition home or self-care (01) | LOC: SLEEP 07-18 06:39 | PROVIDERS: PCP Nurse Practitioner Family; Visit Provider Nurse Practitioner Family | DX: G47.33 Obstructive sleep apnea (adult) (pediatric) (principal) | CPT/HCPCS: 95810 ==

== ENCOUNTER 2022-08-25 14:06 | Outpatient (CLI) | payer MEDICAID, SELFPAY ==
--- NOTE | 2022-08-25 14:23 | MM_ITS ---
WS: [id number] BILATERAL 3D TOMOSYNTHESIS DIGITAL DIAGNOSTIC MAMMOGRAPHY WITH CAD CLINICAL INFORMATION: 6 MONTH FOLLOW UP COMPARISON: Multiple prior studies including ultrasound February 25, 2022 and August 15, 2021. TECHNIQUE: Bilateral CC, MLO, and ML views. FINDINGS: The breasts are composed of heterogeneous fibroglandular density, which can limit the detection of sm all underlying mass lesions. Slight interval increase in size of the lobulated lesion mid depth RIGHT breast measuring 14 mm previously demonstrated to represent a simple cyst. Previously this measured 10 mm. Stable nodular densities upper outer LEFT breast which also previously represented simple and complex lesions. Ultrasound LEFT breast described below ULTRASOUND BREAST LEFT TECHNIQUE: Ultrasound left breast focused area of concern. CLINICAL INFORMATION: 6 MONTH FOLLOW UP FINDINGS: Again seen are multiple simple and complex lesions. Largest simple cyst at the 1:00 position 3 cm fro m the nipple has a simple appearance measuring 12 x 8 x 15 mm. Additional hypoechoic lesions likely r epresenting complex cysts with internal debris at the 3:00 and 2:00 positions 3 cm from the nipple. T hese are subcentimeter in size and similar to previous. The largest measuring 5 x 4 x 6 mm and 5 x 5 x 6 mm. Recommend 6 month follow-up LEFT breast ultrasou nd to confirm stability. MM/[id number] IMPRESSION: BI-RADS: 3-Probably Benign FOLLOW UP: 6 Month Follow-up Recommend 6 month follow-up LEFT breast ultrasound only.
== END 2022-08-25 14:07 | disposition home or self-care (01) ==
LOC: RAD 14:08
PROVIDERS: PCP Nurse Practitioner Family; Visit Provider Nurse Practitioner Family
DX: N60.02 Solitary cyst of left breast (principal)
CPT/HCPCS: 76642; 77062; G0279

== ENCOUNTER 2022-09-25 12:43 | Outpatient (CLI) | payer MEDICAID, SELFPAY ==
--- NOTE | 2022-09-25 13:00 | US_ITS ---
WS: [id number] ULTRASOUND-GUIDED LEFT BREAST BIOPSY HISTORY: L BREAST CYST COMPARISON: 08/25/2022 Procedure, risks and complications are explained to the patient. Medications are reviewed. Consent is obtained. The mass in the LEFT breast is localized with ultrasound. Mass localizes to 2:00, 3 cm from the nippl e. Skin is cleansed with ChloraPrep and anesthetized with 1% buffered lidocaine. Small dermatome is m dionne. Under sterile conditions mass is biopsied with a 14-gauge Achieve needle. Multiple core biopsies are performed. Material placed in formalin and sent to pathology for review. No complications encoun tered. Breast tissue marker (Preferred [employer] ultrasound enhanced ribbon): Single. Patient left the radiology suite with no complications. Patient is instructed to return [place] [facility] [place] [facility] with any concerns. US/[id number] IMPRESSION: 1. Uncomplicated core needle biopsy LEFT breast mass at 2:00. PATHOLOGY: Fibrocystic changes with focal fat necrosis. Negative for malignancy . RECOMMENDATION: Return to annual screening mammography. Screening mammography J anuary 2023.
== END 2022-09-25 12:44 | disposition home or self-care (01) ==
LOC: RAD 12:46
PROVIDERS: PCP Nurse Practitioner Family; Visit Provider Nurse Practitioner Family
DX: N60.02 Solitary cyst of left breast (principal)
CPT/HCPCS: 19083; 88305; 88342

== ENCOUNTER → 2022-11-11 09:40 | Outpatient (BNVA) | payer MEDICAID, SELFPAY | PROVIDERS: PCP Nurse Practitioner Family; Visit Provider Obstetrics & Gynecology | DX: R30.0 Dysuria (principal); N39.0 Urinary tract infection, site not specified | CPT/HCPCS: 81000 ==

== ENCOUNTER 2022-11-13 14:37 | Observation (INO) | payer MEDICAID, SELFPAY ==
[2022-11-11 10:58] VITALS: BMI 43.5
--- NOTE | 2022-11-11 12:42 | P.ANESASSM_ITS ---
Pre-Anesthetic Assessment Height/Weight: Height 1.52 m Weight 101.151 kg Operation Date: 11/13/22 10:50 Proposed Procedures p Total vaginal hysterectomy, bilateral salpingo-oophorectomy 14395, Anterior colporrhaphy 30728, Single incision sling 70931,N81.2,N39.3(Not Applicable) - Blair Bartlett MD s Salpingo-Oophorectomy (Vaginal)(Not Applicable) - Blair Bartlett MD s Anterior colporrhaphy(Not Applicable) - Blair Bartlett MD s Sling Single Incision Sling(Not Applicable) - Blair Bartlett MD Familial anesthetic complications: none Was Beta Una taken within 24 hours: N/A Was Clonidine taken within 24 hours: N/A Social No alcohol and No tobacco Exam alert, oriented x 3, clear to auscultation bilaterally and regular rate & rhythm Airway Submandibular: within normal limits Cervical ROM: within normal limits Mallampati: Class II Dentition: full Pulmonary Asthma Metabolic Morbid Obesity Musc/skel Lower Back Pain and Osteoarthritis/DJD Anesthetic Plan ASA status: 2 Anesthesia: General Medications/Allergies Home Medications Medication Instructions Recorded Confirmed Last Taken Type cholecalciferol (vitamin D3) 1,250 1,250 mcg PO .weekly 04/30/22 11/11/22 1 Day Ago History mcg (50,000 unit) capsule ~11/10/22 montelukast 10 mg tablet 10 mg PO DAILY 11/11/22 11/11/22 1 Day Ago History (Singulair) ~11/10/22 oxycodone-acetaminophen 7.5 mg-325 1 tab PO Q4-5H PRN Pain 11/11/22 11/11/22 1 Day Ago History mg tablet ~11/10/22 Allergies Allergy/AdvReac Type Severity Reaction Status Date / Time prochlorperazine Allergy angry Verified 11/11/22 10:54 [From Compazine] [facility] Anesthesia Medical History High cholesterol Family History Mother Diabetes Hypertension Cancer Father Lung disease Family/Other Cancer breast cancer, Family/Other Cancer pre-cancer of the colon Social History Smoking and tobacco status: never smoked Alcohol intake: never Data Anesthesia Cardiac Studies: No Data to Display
[2022-11-13] VITALS (18 sets, daily range): BP systolic 101–173; BP diastolic 43–86; PULSE 68–133; RESP 12–20; TEMP 36.1–37.2; O2SAT 91–100
[2022-11-13 08:56] LABS: OR HCG Qualitative Urine Negative (Negative)
[2022-11-13 09:26] LABS: Basophils % 0.5 %; Eosinophils # 0.2 10^3/uL (0.0-0.8); Eosinophils % 3.4 %; Hematocrit 34.5 % (37.0-47.0); Hemoglobin 10.6 g/dL (11.5-15.3); Lymphocytes # 1.3 10^3/uL (0.8-4.8); Lymphocytes % 23.6 %; Mean Corpuscular HGB Conc 30.7 g/dL (30.0-36.0); Mean Corpuscular Hemoglobin 26.7 pg (28.0-34.0); Mean Corpuscular Volume 86.9 fl (81-99); Mean Platelet Volume 9.6 fL (7.4-10.4); Monocytes # 0.5 10^3/uL (0.2-0.9); Monocytes % 8.1 %; Neutrophils # 3.56 10^3/uL (1.8-7.7); Nucleated Red Blood Cells % 0 %; Platelet Count 345 10^3/cmm (130-400); Red Blood Count 3.97 10^6/uL (4.1-5.3); Red Cell Distribution Width 13.9 % (12.1-15.1); White Blood Count 5.6 10^3/uL (4.0-10.0)
[2022-11-13] MEDS: sodium chloride 0.9% 1,000 ML 30 ML IV (09:31)
--- NOTE | 2022-11-13 09:34 | W.PM.OPSUD ---
Surgery/Procedure H&P Update DATE OF PROCEDURE: November 13, 2022 DATE H&P PERFORMED: 11/11/22 H&P UPDATE INFORMATION: I have reviewed H&P completed within last 30 days, I have examined patient prior to procedure and No changes to prior documentation PREOP DIAGNOSIS: Cystocele, uterine prolapse PLANNED PROCEDURE: Operation Date: 11/13/22 10:20 Proposed Procedures p Total vaginal hysterectomy, bilateral salpingo-oophorectomy 51082, Anterior colporrhaphy 01528, Single incision sling 47610,N81.2,N39.3(Not Applicable) - Blair Bartlett MD s Salpingo-Oophorectomy (Vaginal)(Not Applicable) - Blair Bartlett MD s Anterior colporrhaphy(Not Applicable) - Blair Bartlett MD s Sling Single Incision Sling(Not Applicable) - Blair Bartlett MD
[2022-11-13 09:44] LABS: Blood Urea Nitrogen 10 mg/dL (6-20); Calcium 9.3 mg/dL (8.5-10.5); Carbon Dioxide 23 mmol/L (22-29); Chloride 100 mmol/L (98-107); Creatinine Clr Calc Pharmacy 79.1061; Glucose 140 mg/dL (65-115); Osmolality Calculated 277 mOsm/kg (285-295); Sodium 133 mmol/L (136-145)
[2022-11-13 09:49] LABS: Anion Gap 14.2 (5-19); Potassium 4.2 mmol/L (3.5-5.1)
[2022-11-13] MEDS: enoxaparin 30 mg/0.3 mL Syringe SUBCUT (09:53)
[2022-11-13] MEDS: ondansetron 2 mg/ML SDV 2 mL 4 MG IVP ×2 (09:54→20:08)
[2022-11-13] MEDS: sodium chloride 0.9% 500 ML IV (09:55)
[2022-11-13] MEDS: ceFOXitin 2,000 MG in sodium chloride 0.9% (plus) 50 ML 100 MG IV (10:02)
[2022-11-13] MEDS: lidocaine-epi 1% 20 mL INJ INJECTION (10:36)
[2022-11-13] MEDS: estrogens Conjugated Cream 30 gm 1 APPLIC VAGINAL (11:56)
--- NOTE | 2022-11-13 12:12 | PM.OP ---
Operative Report Date of procedure: November 13, 2022 Pre-op diagnosis: Preop Diagnosis Cystocele, uterine prolapse Post-op diagnosis: Same as above Procedure done: Total vaginal hysterectomy. Single incision mid urethral sling. Cystoscopy. Specimens removed/disposition: Uterus Surgeon: Blair Bartlett MD Estimated blood loss (mL): 200 IV fluids (mL): 1,200 Urine output (mL): 200 Complications: None Procedure: After informed consent and risks, benefits, indications and alternatives reviewed with the patient was taken to the operating room. The patient was placed in dorsal lithotomy position prepped, and draped in the usual sterile fashion. The pre-procedure timeout verifying the correct patient, procedure, site and side, could not requirements was performed and acknowledge by the OR team. A Tijerina catheter was placed. A Bookwalter vaginal retractor was placed into the vagina in usual manner visualize the cervix. Cervix was grasped with a single tooth tenaculum and circumferentially infiltrated with [1% Xylocaine with epinephrine]. Then cervix was circumferentially incised with bovie and the bladder was dissected off the pubovesical cervical fascia anteriorly with a sponge stick and Metzenbaum scissors. The anterior peritoneal reflection was identified and the anterior cul-de-sac was entered sharply with Metzenbaum scissors. The same procedure was performed posteriorly and a posterior colpotomy was made through the posterior cul-de-sac space without difficulty and the posterior blade of the Bookwalter vaginal retractor was advanced posteriorly into the cul-de-sac. At this time, the left and right uterosacral ligaments were isolated and ligated with 0 Vicryl. The [LigaSure, Voyant] device was placed over the uterosacral ligaments on either side and was then used in a serial fashion up through the cardinal ligaments bilaterally cross-clamped, cut, and sealed with the [LigaSure] device. Finally, the uterine arteries were cross-clamped, cut, sealed and ligated with the [LigaSure] device. Hemostasis was assured. The broad ligaments were then serially clamped, sealed and cut with the [Voyant] device on both sides. Excellent hemostasis was visualized. Both cornua were clamped, sealed and cut with the [LigaSure/Voyant] device. Then the pedicles were then suture ligated with excellent hemostasis. The uterus was excised and submitted for pathologic evaluation. No other abnormalities were noted in the pelvic cavity. Good hemostasis was assure on both sides. The peritoneum was then closed in a pursestring fashion with 0 Vicryl suture. The vaginal cuff angles were closed with [id number] #0 Vicryl suture on both sides and transfixed with the ipsilateral cardinal and uterosacral ligaments. The remainder of the vaginal cuff was closed with #0 Vicryl in a running locked fashion. Then proceeded to perform the single incision mid urethral sling. A vertical midline incision was made beneath the midurethra, nearly 1.5 cm length. Careful submucosal dissection was performed bilaterally up to the interior portion of the inferior pubic ramus. The insertion of adductor longus tendon on the patient?s pubic ramus was identified as reference land ericka. Palpated the notch along the internal edge of ischiopubic ramus where the adductor longus tendon and the inferior pubic ramus meet. The Altis single incision sling (SIS) was selected. Then the needle of the SIS inserted aiming at the location of this notch. One of the integrated self-fixating tips place onto the needle by sliding it over the end of the needle. The needle/sling assembly was inserted toward the location of identified reference notch making sure that the flat of the handle is perpendicular to the desired path. The needle was tracked along the posterior surface of the ischiopubic ramus until the midline ericka on the mesh is approximately at the midline position under the urethra. The needle was removed and the same was repeated on the contralateral side until the appropriate sling tension under the urethra was achieved ensuring that the mesh lays flat. The needle was removed and vaginal incision was closed in a running interlocking fashion with 2-0 Vicryl. After hysterectomy and single incision mid urethral sling anterior colporrhaphy was not needed. At this time, instruments were removed from the vagina at hemostasis assured. Then the Tijerina catheter was removed and cystoscope was inserted. The bladder was filled with sterile water. Complete evaluation of the bladder mucosa was performed noting no lacerations, dimpling, tears, bleeding of the mucosa or muscular layers. Both ureteral orifices were identified. Prompt excretion of urine from both ureteral orifices was noted. Cystoscope was withdrawn. Tijerina catheter was then placed yielding clear nina urine. A vaginal packing with Premarin cream was placed and the patient was taken out of dorsal lithotomy position and awakened from the general anesthesia. The patient tolerated the procedure well and was taken to the PACU recovery room in a stable condition. Sponge, lap, needle and instruments counts were correct x3.
[2022-11-13 12:30] LABS: Add Urine Microscopic? NO; Charge for UA Resulting for Rev
[2022-11-13] MEDS: fentaNYL 50 mcg/mL INJ 2mL 100 MCG IVP (12:50)
[2022-11-13] MEDS: diphenhydrAMINE 50 mg/mL SDV 1mL 12.5 MG IVP ×2 (12:56→20:39)
[2022-11-13 13:09] LABS: Bilirubin Urine Neg (Negative); Blood Urine 3+ (Negative); Glucose Urine UA Norm (Normal); Ketones Urine Negative (Negative); Leukocyte Esterase Urine Negative (Negative); Nitrate Urine Negative (Negative); Protein Urine Neg (Negative); Specific Gravity, Urine 1.005 (1.005-1.030); Urine Appearance Clear (CLEAR); Urine Color Colorless (Yellow); Urobilinogen Urine Norm (Negative); pH Urine 5 (5-7)
[2022-11-13] MEDS: hetastarch 30 GM/500 ML PREMIX IV (13:23)
--- NOTE | 2022-11-13 14:07 | P.ANESUD_ITS ---
Pre-Anesthetic Update Pre-Anesthetic Assessment: Date of Surgery/Procedure: 11/13/22 Preop Jamila gnosis: Cystocele, uterine prolapse Proposed Procedure: Operation Date: 11/13/22 10:20 Proposed Procedures p Total vaginal hysterectomy, bilateral salpingo-oophorectomy 29341, Anterior colporrhaphy 56531, Single incision sling 62152,N81.2,N39.3(Not Applicable) - Blair Bartlett MD s Salpingo-Oophorectomy (Vaginal)(Not Applicable) - Blair Bartlett MD s Anterior colporrhaphy(Not Applicable) - Blair Bartlett MD s Sling Single Incision Sling(Not Applicable) - Blair Bartlett MD Any changes to Pre-Anesthetic Assessment?: No Last Intake: Intake Last Liquid Date 11/13/22 Last Liquid Time 00:00 Last Solid Date 11/12/22 Last Solid Time 21:30 Labs Last 48hrs: Short CBC 11/13/22 Range/Units 09:19 WBC 5.6 (4.0-10.0) 10^3/ uL Hgb 10.6 L (11.5-15.3) g/dL Hct 34.5 L (37.0-47.0) % MCV 86.9 (81-99) fl Plt Count 345 (130-400) 10^3/c mm Neut % (Auto) 64.0 % Neut # (Auto) 3.56 (1.8-7.7) 10^3/u L BMP 11/13/22 09:19 Sodium 133 L Potassium 4.2 Chloride 100 Carbon Dioxide 23 BUN 10 Creatinine 0.9 Glucose 140 H Calcium 9.3 Urine 11/13/22 Range/Units 12:19 Urine Color Colorless (Yellow) Urine Appearance Clear (CLEAR) Urine pH 5 (5-7) Ur Specific Gravit y 1.005 (1.005-1.030) Urine Protein Neg (Negative) Urine Glucose (UA) Norm (Normal) Urine Ketones Negative (Negative) Urine Nitrate Negative (Negative) Urine Bilirubin Neg (Negative) Ur Leukocyte Olive ase Negative (Negative) Blood Bank 11/13/22 09:19 Blood Type B Positive Rho(D) Type Positive Antibody Screen Negative Vitals: Temperature 97.0 F L 11/13/22 13:50 Temperature Source Temporal Artery S can 11/13/22 13:50 Pulse Rate 90 11/13/22 13:50 Respiratory Rate 18 11/13/22 13:50 Respiratory Effort Non-Labored 11/13/22 12:50 Respiratory Depth Normal 11/13/22 12:50 Respiratory Patter n 11/13/22 12:50 Blood Pressure 111/61 11/13/22 13:50 Blood Pressure Lena n 80 11/13/22 13:10 Pulse Oximetry 96 11/13/22 13:50 Oxygen Delivery Me thod 11/13/22 13:50 Oxygen Flow Rate 6 11/13/22 12:45 Exam: Pre-Anes Outpt Exam: alert, oriented x 3, clear to auscultation bilaterally and regular rate & rhythm Cardiac Studies: No Data to Display
[2022-11-13] MEDS: dextrose 5%-lactated ringers 1,000 ML 125 ML IV ×2 (15:56→23:51)
--- NOTE | 2022-11-13 16:00 | ANE.PACU2 ---
Inpatient post-anesthesia follow up: Airway intact: Yes Vital signs: Temperature 97.0 F Pulse Rate 90 Respiratory Rate 18 Blood Pressure 111/61 Pulse Oximetry 96 Oxygen Delivery Me thod Room Air Oxygen Flow Rate 6 Fraction of Inspir ed Oxygen Hydration adequate: Yes Nausea and vomiting: Yes Pain level: 3 Mental status: Baseline
[2022-11-13] MEDS: ketorolac 30 mg/mL INJ IVP (17:42)
[2022-11-13] MEDS: docusate sodium 100 mg Capsule PO (17:42)
[2022-11-13] MEDS: nitrofurantoin SR (BID) 100 mg Capsule PO (17:42)
[2022-11-13] MEDS: HYDROcodone-acetaminophen 5-325 mg Tablet PO (20:08)
--- NOTE | 2022-11-13 20:41 | PC.NURSE ---
This nurse administered Zofran and hydrocodone upon patient and spouse's request at approximately 2007. Approximately 5-10 minutes later, the patient began to complain that the right side of her throat began to close off and had a difficult time breathing. Patient then said was having chest pressure and that the pain in her leg had disappeared. On-call OB doctor, Dr Zapata, was called and informed of the situation. Benny gave verbal orders for 12.5mg IVP Benadryl for potential allergic reaction and stated that he would come up and see the patient in room 275. While this nurse was assessing the patient, this nurse was then informed that the patient would be transferred to OB in order to watch the patient closer. This nurse then called report to OB over the phone and helped patient and spouse transfer to room 11 via bed, along with all of their belongings. Patient was on 2L nasal cannula, not complaining of pain, and at bedside when primary nurse left. BUDGET DIRECTOR to bring patient chart down to patient room in OB.
[2022-11-14] MEDS: ketorolac 30 mg/mL INJ IVP ×2 (00:22→06:03)
[2022-11-14 06:14] LABS: Hemoglobin 8.1 g/dL (11.5-15.3); Mean Platelet Volume 9.6 fL (7.4-10.4); Platelet Count 304 10^3/cmm (130-400); White Blood Count 12.9 10^3/uL (4.0-10.0)
[2022-11-14] MEDS: HYDROcodone-acetaminophen 5-325 mg Tablet PO ×2 (06:45→12:23)
[2022-11-14 09:50] VITALS: BP 119/65; PULSE 84; RESP 16; TEMP 36.8
[2022-11-14] MEDS: montelukast sodium 10 mg Tablet PO (10:15)
[2022-11-14] MEDS: docusate sodium 100 mg Capsule PO (10:15)
[2022-11-14] MEDS: ibuprofen 800 mg tablet PO (10:15)
[2022-11-14] MEDS: nitrofurantoin SR (BID) 100 mg Capsule PO (10:15)
--- NOTE | 2022-11-14 12:22 | P.DS_ITS ---
Discharge Providers BRAKE LINING FINISHER Date of Admission: 11/13/22 14:37 Date of Discharge: 11/14/22 Attending Provider at Admission: Blair Bartlett MD Attending Provider at Discharge: Blair Bartlett MD Primary BRAKE LINING FINISHER: Blair Bartlett MD Primary Care Provider: Mar Jose Reason for Visit Reason for Visit: N81.2, n39.3 Hospital Course Hospital Course Stage 52-year-old female admitted for planned total vaginal hysterectomy with with bilateral salpingo-oophorectomy, anterior colporrhaphy augmented with allograft and single incision mid urethral sling. Prior to the procedure the patient changed her mind and decided not to have her ovaries taken out. A total vaginal hysterectomy and single incision mid urethral sling was performed without complications. Overnight observation was uneventful. Tolerating diet well. Ambulating without difficulty. She is afebrile and hemodynamically stable postoperative day 1. She was counseled regarding pelvic rest for 6 weeks (no sex, no tampons, no vaginal douches). Return to the emergency room if any fever, increased bleeding or pain. She was also advised regarding weight lifting limitation to 10 pounds. Physical Exam Narrative: GA: Alert and oriented ?3. HEENT: WNL. Heart: Regular rate and rhythm. Lungs: Clear to auscultation bilaterally. Abdomen: Bowel sounds present, nontender, minimal tenderness, incision clean and dry. Extremities: No edema, no cyanosis, no calves pain. Urinary Catheter Management: [place]: Cath Placed During This Visit: yes, but has since been removed by the nurse Reason for Continuing Indwelling Catheter: Perioperative Use in Selected Surgeries Urinary Catheter Date of Insertion: 11/13/22 Urinary Catheter Time of Insertion: 10:27 Date Urinary Catheter Removed: 11/14/22 Time Urinary Catheter Discontinued: 06:30 History History History 11 Term 6 0 Miscarriages/Ectopic 5 Living Children 6 Discharge Data Studies Completed and Pending Pending at discharge Category Date Time Status Pathology: Surgical [PTH] Routine Pth 11/13/22 12:27 Received Laboratory Results WBC 12.9 10^3/uL (4.0-10.0) H 11/14/22 06:00 RBC 3.00 10^6/uL (4.1-5.3) L 11/14/22 06:00 Hgb 8.1 g/dL (11.5-15.3) L 11/14/22 06:00 Hct 27.0 % (37.0-47.0) L 11/14/22 06:00 MCV 90.0 fl (81-99) 11/14/22 06:00 MCH 27.0 pg (28.0-34.0) L 11/14/22 06:00 MCHC 30.0 g/dL (30.0-36.0) 11/14/22 06:00 RDW 14.0 % (12.1-15.1) 11/14/22 06:00 Plt Count 304 10^3/cmm (130-400) 11/14/22 06:00 MPV 9.6 fL (7.4-10.4) 11/14/22 06:00 Neut % (Auto) 64.0 % 11/13/22 09:19 Lymph % (Auto) 23.6 % 11/13/22 09:19 Schleicher % (Auto) 8.1 % 11/13/22 09:19 Eos % (Auto) 3.4 % 11/13/22 09:19 Baso % (Auto) 0.5 % 11/13/22 09:19 Neut # (Auto) 3.56 10^3/uL (1.8-7.7) 11/13/22 09:19 Lymph # (Auto) 1.3 10^3/uL (0.8-4.8) 11/13/22 09:19 Schleicher # (Auto) 0.5 10^3/uL (0.2-0.9) 11/13/22 09:19 Eos # (Auto) 0.2 10^3/uL (0.0-0.8) 11/13/22 09:19 Baso # (Auto) 0.0 10^3/uL (0.0-0.1) 11/13/22 09:19 Nucleated RBC % (auto) 0 % 11/13/22 09:19 Nucleated RBCs # 0.0 /100WBC 11/13/22 09:19 Sodium 133 mmol/L (136-145) L 11/13/22 09:19 Potassium 4.2 mmol/L (3.5-5.1) 11/13/22 09:19 Chloride 100 mmol/L (98-107) 11/13/22 09:19 Carbon Dioxide 23 mmol/L (22-29) 11/13/22 09:19 Anion Gap 14.2 (5-19) 11/13/22 09:19 BUN 10 mg/dL (6-20) 11/13/22 09:19 Creatinine 0.9 mg/dL (0.5-0.9) 11/13/22 09:19 GFR Calculation 66.0 mL/min (90-130) L 11/13/22 09:19 Glucose 140 mg/dL (65-115) H 11/13/22 09:19 Calculated Osmolality 277 mOsm/kg (285-295) L 11/13/22 09:19 Calcium 9.3 mg/dL (8.5-10.5) 11/13/22 09:19 Urine Color Colorless (Yellow) 11/13/22 12:19 Urine Appearance Clear (CLEAR) 11/13/22 12:19 Urine pH 5 (5-7) 11/13/22 12:19 Ur Specific [place] 1.005 (1.005-1.030) 11/13/22 12:19 Urine Protein Neg (Negative) 11/13/22 12:19 Urine Glucose (UA) Norm (Normal) 11/13/22 12:19 Urine Ketones Negative (Negative) 11/13/22 12:19 Urine Blood 3+ (Negative) H 11/13/22 12:19 Urine Nitrate Negative (Negative) 11/13/22 12:19 Urine Bilirubin Neg (Negative) 11/13/22 12:19 Urine Urobilinogen Norm mg/dL (Negative) 11/13/22 12:19 Ur Leukocyte Esterase Negative (Negative) 11/13/22 12:19 Urine HCG, Qual Negative (Negative) 11/13/22 08:52 Blood Type B Positive 11/13/22 09:19 Rho(D) Type Positive 11/13/22 09:19 Antibody Screen Negative 11/13/22 09:19 Vitals Last Vital Signs Temp 98.3 F 11/14/22 09:50 Pulse 84 11/14/22 09:50 Resp 16 11/14/22 09:50 BP 119/65 11/14/22 09:50 Pulse Ox 98 11/13/22 22:37 O2 Del Method 11/14/22 09:50 O2 Flow Rate 6 11/13/22 12:45 Discharge Plan Discharge Patient Disposition: Home Condition: Stable Prescriptions: New hydrocodone-acetaminophen 5-325 mg tablet 1 tab PO Q4H PRN (Reason: pain) Qty: 20 0RF acetaminophen 325 mg capsule 325 mg PO Q4H PRN (Reason: fever or pain) Qty: 60 0RF ibuprofen 800 mg tablet 800 mg PO TID PRN (Reason: pain) Qty: 60 0RF docusate sodium [Colace] 100 mg capsule 100 mg PO BID Qty: 60 0RF ferrous sulfate [Iron (ferrous sulfate)] 325 mg (65 mg iron) tablet 325 mg PO BID Qty: 60 0RF Continued cholecalciferol (vitamin D3) 1,250 mcg (50,000 unit) capsule 1,250 mcg PO .weekly Rx Instructions: Thursday nitrofurantoin monohyd/m-cryst [Macrobid] 100 mg capsule 100 mg PO BID 7 Days Qty: 14 0RF Rx Instructions: hasn't taken this rx yet montelukast [Singulair] 10 mg tablet 10 mg PO DAILY oxycodone-acetaminophen 7.5-325 mg tablet 1 tab PO Q4-5H PRN (Reason: Pain) Discharge Orders: Discharge Order (Routine); Ordered 11/14/22 Ordered By: Blair Bartlett Discharge Diet: Usual diet Discharge Activity: Limit activity as instructed Patient Instructions: Cystoscopy, Hydrocodone/Acetaminophen (By mouth) (Vicodin, [place], Lortab), Ibuprofen (By mouth), Bladder Sling for Women (GEN), Vaginal Hysterectomy (GEN), Anterior Vaginal Repair (GEN), Opioid Safety, Bladder Sling for Women (DC) Activity Restrictions/Additional Instructions: 1. Please call [facility] on next working day to make your post-operative appointment in 2 weeks. 2. Please stay home until you come back to the clinic on first post-operative check up. 3. Please follow instructions on your medications CAREFULLY. 4. If you have abdominal incision, do not cover it unless dressing is necessary because of drainage. OK to shower, but avoid bath. Leave steri-strips until they fall off. If they are still on one week after surgery, you may remove them. 5. If you had vaginal surgery or vaginal repair, Dr. Bartlett may instruct you to take SITZ bath. 6. Yellow, blood tinged odorous vaginal discharge is usually normal after hysterectomy or vaginal surgeries. 7. No sexual intercourse, tampons, or douches until you are completely released from the post-operative care. 8. Avoid constipation by eating right and maybe using some Metamucil or Milk of Magnesia. 9. All prescription refills are given during the working hours. Please do no wait till it runs out. Call the clinic at [phone] before your medication runs out. The clinic will get in touch with your doctor to prescribe medications if necessary. 10. Please remain within 40 mile radius from our hospital because emergencies do happen now and then during the post-operative period. 11. If you have stairs at home, take one step at a time slowly and minimize the number of trips. It helps to stay in one floor for the next few days. No lifting except what you can lift by one hand until you are released from the post-operative care. 12. Driving is discouraged until you are well healed. It may be 3-4 weeks before you feel strong enough to drive. You should be able to turn and look through the rear window without pain and you should be able to push the brake pedal very hard without pain before you drive. No fast rules, but SAFETY should be your primary concern. DO NOT drive if you are on sedating medications such as narcotics. 13. Call the clinic (during working hours) to make urgent appointment or go to the Emergency room, if any of the following occurs: i. Vaginal bleeding becomes heavy, more than a period. ii. Incision becomes red and sore, or drains pus. iii. Your temperature is over 100.4 or you have chill. iv. IV site becomes red and swollen (a little ``knot?? is usually OK) v. Persistent nausea and vomiting vi. Persistent constipation or diarrhea vii. Rash or allergic reaction to medications. Discharge Attestations BRAKE LINING FINISHER Time Spent in Discharge Care*: greater than 30 min Coding Level of Care Code Acute Code for Chg Fwd
[2022-11-14 12:45] VITALS: BP 119/65; PULSE 84; RESP 16; TEMP 36.8
== END 2022-11-14 12:45 | disposition home or self-care (01) ==
LOC: MEDSURG 11-14 07:51 → OBGYN 11-14 07:51
PROVIDERS: Admitting Provider Obstetrics & Gynecology; PCP Nurse Practitioner Family; Visit Provider Obstetrics & Gynecology
PROC: (CPT 57288; principal; 2022-11-13 10:10)
PROC: 0JQC0ZZ Repair Pelvic Region Subcutaneous Tissue and Fascia, Open Approach (ICD-10-PCS; CPT 57240; 2022-11-13 10:10)
PROC: (CPT 57288; 2022-11-13 10:10)
PROC: 0TJB8ZZ Inspection of Bladder, Via Natural or Artificial Opening Endoscopic (ICD-10-PCS; CPT 52000; 2022-11-13 10:10)
DX: N81.4 Uterovaginal prolapse, unspecified (principal); J45.909 Unspecified asthma, uncomplicated; E66.01 Morbid (severe) obesity due to excess calories; Z68.41 Body mass index [BMI] 40.0-44.9, adult
CPT/HCPCS: 57288; 58260; 36415; 51798; 80048; 81003; 81025; 84703; 85025; 85027; 86850; 86900; 88305; C1713; G0378; J0131; J0330; J0694; J1100; J1200; J1650; J1885; J2250; J2405; J2704; J2710; J3010; J3490; J7030; J7040; J7121; Q9968

== ENCOUNTER 2022-12-02 09:57 | Emergency (ER) | payer MEDICAID, SELFPAY ==
--- NOTE | 2022-12-02 09:59 | XR_ITS ---
WS: [id number] Portable AP upright chest, 12/02/2022 Clinical Data: cp Comparison: Portable chest, 03/15/2021 Findings: No nodules, masses or effusions are seen. The heart is normal. The pulmonary vascularity is not increased. No pneumonia or pneumothorax is seen. XR/XR chest 1V portable [id number] Impression: Negative chest.
--- NOTE | 2022-12-02 09:59 | ECG_ITS ---
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 Measurements Intervals [place] Rate: 103 P: 61 MD: 159 QRS: 69 QRSD: 73 T: 67 QT: 325 QTc: 426 Interpretive Statements SINUS TACHYCARDIA Compared to ECG 07/17/2018 11:17:35 Sinus rhythm no longer present Electronically Signed On 12-02-2022 14:48:55 CDT by Neftali Victor M.D. [email or web address] [email or web address] medical [email or web address]/[id number]
[2022-12-02 10:01] VITALS: BP 128/66; PULSE 99; RESP 12; TEMP 36.8; O2SAT 93; BMI 43.5
--- NOTE | 2022-12-02 10:13 | CT_ITS ---
WS: [id number] CT HEAD NONCONTRAST HISTORY: Syncopal episode, fell and hit back of head TECHNIQUE: Contiguous axial imaging performed through the brain in 2.5 mm imaging. Bone and soft tiss ue windows. Sagittal and coronal reformats reviewed. All CT scans at [facility] use at least one of these dose optimization techniques: automated exposure control; mA and/or kV adjustment per pa tient size (includes targeted exams where dose is matched to clinical indication); or iterative recon struction. DLP: 1056.78 mGy.cm COMPARISON: 07/17/2018 No acute intracranial hemorrhage, midline shift or mass effect. No atrophy or prior infarcts or herniation. Ventricles: Normal size with no hydrocephalus. Paranasal sinuses: Small mucous retention cyst in the LEFT maxillary sinus. Mastoid air cells: Well pneumatized. Calvarium and scalp: Skull is intact with no soft tissue edema or swelling. CT/CT head wo con* [id number] IMPRESSION: 1. No acute intracranial hemorrhage or edema. 2. No sulcal effacement or prior infarcts.
--- NOTE | 2022-12-02 10:14 | ED_ITS ---
HPI - Syncope General: Chief Complaint: Syncope Stated Complaint: SYNCOPE/ CHEST PRESSURE Time Seen by Provider: 12/02/22 10:00 History of Present Illness: Patient is a 52-year-old female comes to the ED via EMS with syncopal episode and shortness of breath. Patient was given 324 mg of aspirin and 4 mg of Zofran by EMS while in route. Recent hysterectomy back on November 13, 2022. Patient had a UTI and just finished last dose of antibiotic yesterday. Patient reports having a fever of 100.7 this morning. Incident occurred outside of court house. She was up and walking around and then described not feeling right. Endorses having some nausea and diaphoresis at the time. She was feeling really short of breath and also described having some chest pressure but denies any pain. She then went to sit down on a bench and had a syncopal episode. She was out for no more than a minute and her brother was there and helped her get back up. He was trying to help her walk to the vehicle to come to the ED and she had another syncopal episode where she fell down to the ground. Patient's brother reports that patient hit back of head on concrete. Patient was down for less than a minute as well and when she came to she was a little confused. EMS was called out and brought patient here to the ED. Here in the ED patient still feels some chest pressure, but says it has improved some. Endorses generalized malaise, nausea and a headache. Denies any dysuria or hematuria. Associated symptoms: Reports chest pain, headache(s) and nausea; Deny abdominal pain or fever(s) Review of Systems Const: Denies: fever(s), chills or fatigue Eyes: Denies: change in vision or eye discomfort ENMT: Denies: throat pain, odynophagia, nasal discharge or nasal congestion Card: Reports: chest pain and syncope; Denies: palpitations, edema, swelling of feet/ankles, dyspnea on exertion or orthopnea Resp: Reports: dyspnea; Denies: productive cough or non-productive cough GI: Reports: nausea; Denies: abdominal pain, vomiting, diarrhea, constipation or hematochezia : Denies: flank pain, dysuria or hematuria Musc: Denies: neck pain, back pain or extremity swelling Skin/Breast: Denies: rash or new lesions Neuro: Reports: headache(s); Denies: numbness in extremities or weakness in extremities PFSH ED PFSH: Medical History (Updated 12/02/22 @ 13:17 by FADIA Orta) Chronic back pain High cholesterol No pertinent past medical history neghx: htn,dm,thyroid,dvt/pe PCP: Mar Hughes Polyp of cervix Surgical History (Updated 11/26/22 @ 09:51 by Perla Oswald APN, KIMBERLY) H/O tubal ligation History of cholecystectomy History of hysterectomy (~11/13/22) TVH, single incision mid urethral sling, cystoscopy performed at [facility] by Dr. Bartlett for cystocele and uterine prolapse. Family History Mother Diabetes Hypertension Cancer Father Lung disease Family/Other Cancer breast cancer, Family/Other Cancer pre-cancer of the colon Social History Smoking and tobacco status: never smoked Alcohol intake: never Physical Exam Const: COMMON NORMALS: no acute distress, patient oriented x3 and alert HENMT: COMMON NORMALS: normocephalic HEAD & SCALP: normocephalic MOUTH: Normal oral and palatal mucosa present THROAT: posterior oropharynx normal and uvula midline Eye: COMMON NORMALS: Equal, round and reactive pupils present, EOMs intact bilaterally and conjunctivae normal CONJUNCTIVA: Yes conjunctivae normal PUPIL: Yes Equal, round and reactive pupils present Neck/C-Spine: COMMON NORMALS: supple GENERAL: Yes normal visual inspection Resp: COMMON NORMALS: normal respiratory effort, No retractions, No use of accessory muscles and clear to auscultation bilaterally AUSCULTATION: clear to auscultation bilaterally Cardio: COMMON NORMALS: regular rate, regular rhythm, S1 normal heart sound present, S2 normal heart sound present, No gallops present (Cardio), No clicks present (Cardio), No murmurs present (Cardio) and Peripheral pulses 2+ throughout RATE: regular rate RHYTHM: regular rhythm HEART SOUNDS: S1 normal heart sound present and S2 normal heart sound present PERIPHERAL PULSES: Peripheral pulses 2+ throughout GI: COMMON NORMALS: Normal to inspection, nondistended, normoactive bowel sounds present, Soft to palpation, non-tender and no masses PALPATION: Yes Soft to palpation : COMMON NORMALS: Yes no CVA tenderness BLADDER/KIDNEY EXAM: Yes no CVA tenderness Back/Pelvis: COMMON NORMALS: no CVA tenderness Extremity: COMMON NORMALS: normal to inspection Neuro: COMMON NORMALS: patient oriented x3, CN's II-XII intact bilaterally, moves all extremities, no focal motor deficits and no sensory deficits noted SENSORIUM/ORIENTATION: Yes alert SPEECH: speech normal GAIT: Yes Normal gait present Skin: GENERAL SKIN EXAM: dry skin Course Vital Signs: Vital signs: Vital Signs Temperature 98.3 F 12/02/22 10:01 Pulse Rate 110 H 12/02/22 10:45 Respiratory Rate 14 12/02/22 10:45 Blood Pressure 150/70 12/02/22 10:45 Pulse Oximetry 93 12/02/22 10:45 Oxygen Delivery Me thod Room Air 12/02/22 10:45 MDM - Syncope Medical Decision Making Patient is a 52-year-old female comes to the ED via EMS with syncopal episode and shortness of breath. Patient was given 324 mg of aspirin and 4 mg of Zofran by EMS while in route. Recent hysterectomy back on November 13, 2022. Patient had a UTI and just finished last dose of antibiotic yesterday. Patient reports having a fever of 100.7 this morning. Incident occurred outside of court house. She was up and walking around and then described not feeling right. Endorses having some nausea and diaphoresis at the time. She was feeling really short of breath and also described having some chest pressure but denies any pain. She then went to sit down on a bench and had a syncopal episode. She was out for no more than a minute and her brother was there and helped her get back up. He was trying to help her walk to the vehicle to come to the ED and she had another syncopal episode where she fell down to the ground. Patient's brother reports that patient hit back of head on concrete. Patient was down for less than a minute as well and when she came to she was a little confused. EMS was called out and brought patient here to the ED. Here in the ED patient still feels some chest pressure, but says it has improved some. Endorses generalized malaise, nausea and a headache. Denies any dysuria or hematuria. Vitals are stable. Exam is benign. Patient appears nontoxic and in no acute distress. Labs are unremarkable. UA shows possible UTI. Troponin negative. EKG showed normal sinus rhythm with no ST segment elevation or depression seen. Orthostatic vitals normal. Chest x-ray showed no acute findings. Head CT showed no acute findings. Patient was stable for discharge home and diagnosed with atypical chest pain, UTI and syncopal episode. Told to follow-up with her PCP in the next week for reevaluation. She was sent home with a prescription for an antibiotic. Strict return to ED precautions given. Patient understood and agreed with plan. Lab Data I reviewed the patient's lab results. 12/02/22 10:07 12/02/22 10:07 Radiology Impressions Chest X-Ray 12/02/22 09:59 Impression: Negative chest. Head CT 12/02/22 10:13 IMPRESSION: 1. No acute intracranial hemorrhage or edema. 2. No sulcal effacement or prior infarcts. Laboratory Results WBC 7.4 10^3/uL (4.0-10.0) 12/02/22 10:07 RBC 4.04 10^6/uL (4.1-5.3) L 12/02/22 10:07 Hgb 10.9 g/dL (11.5-15.3) L 12/02/22 10:07 Hct 36.3 % (37.0-47.0) L 12/02/22 10:07 MCV 89.9 fl (81-99) 12/02/22 10:07 MCH 27.0 pg (28.0-34.0) L 12/02/22 10:07 MCHC 30.0 g/dL (30.0-36.0) 12/02/22 10:07 RDW 15.0 % (12.1-15.1) 12/02/22 10:07 Plt Count 321 10^3/cmm (130-400) 12/02/22 10:07 MPV 9.5 fL (7.4-10.4) 12/02/22 10:07 Neut % (Auto) 82.2 % 12/02/22 10:07 Lymph % (Auto) 5.7 % 12/02/22 10:07 [place] % (Auto) 5.2 % 12/02/22 10:07 Eos % (Auto) 6.2 % 12/02/22 10:07 Baso % (Auto) 0.3 % 12/02/22 10:07 Neut # (Auto) 6.06 10^3/uL (1.8-7.7) 12/02/22 10:07 Lymph # (Auto) 0.4 10^3/uL (0.8-4.8) L 12/02/22 10:07 [place] # (Auto) 0.4 10^3/uL (0.2-0.9) 12/02/22 10:07 Eos # (Auto) 0.5 10^3/uL (0.0-0.8) 12/02/22 10:07 Baso # (Auto) 0.0 10^3/uL (0.0-0.1) 12/02/22 10:07 Nucleated RBC % (auto) 0 % 12/02/22 10:07 Nucleated RBCs # 0.0 /100WBC 12/02/22 10:07 Sodium 139 mmol/L (136-145) 12/02/22 10:07 Potassium 4.3 mmol/L (3.5-5.1) 12/02/22 10:07 Chloride 101 mmol/L (98-107) 12/02/22 10:07 Carbon Dioxide 25 mmol/L (22-29) 12/02/22 10:07 Anion Gap 17.3 (5-19) 12/02/22 10:07 BUN 11 mg/dL (6-20) 12/02/22 10:07 Creatinine 1.1 mg/dL (0.5-0.9) H 12/02/22 10:07 GFR Calculation 52.4 mL/min (90-130) L 12/02/22 10:07 Glucose 158 mg/dL (65-115) H 12/02/22 10:07 Calculated Osmolality 291 mOsm/kg (285-295) 12/02/22 10:07 Calcium 9.1 mg/dL (8.5-10.5) 12/02/22 10:07 Total Bilirubin 1.0 mg/dL (0.15-1.2) 12/02/22 10:07 AST 22 U/L (0-32) 12/02/22 10:07 ALT 23 U/L (0-33) 12/02/22 10:07 Alkaline Phosphatase 81 U/L (35-105) 12/02/22 10:07 Troponin T Baseline 8 ng/L (0-10) 12/02/22 10:07 Troponin T 120 Minute 6.00 ng/L (0-10) 12/02/22 12:17 Delta Troponin T -2.0 ABS# (0-10) L 12/02/22 12:17 Total Protein 7.4 g/dL (6.6-8.7) 12/02/22 10:07 Albumin 4.5 g/dL (3.5-5.2) 12/02/22 10:07 Globulin 2.9 g/dL (1.3-4.6) 12/02/22 10:07 Urine Color Yellow (Yellow) 12/02/22 10:40 Urine Appearance Cloudy (CLEAR) A 12/02/22 10:40 Urine pH 5 (5-7) 12/02/22 10:40 Ur Specific [place] 1.030 (1.005-1.030) 12/02/22 10:40 Urine Protein 1+ (Negative) H 12/02/22 10:40 Urine Glucose (UA) Norm (Normal) 12/02/22 10:40 Urine Ketones 1+ (Negative) H 12/02/22 10:40 Urine Blood 2+ (Negative) H 12/02/22 10:40 Urine Nitrate Negative (Negative) 12/02/22 10:40 Urine Bilirubin 1+ (Negative) H 12/02/22 10:40 Urine Urobilinogen 4 mg/dL (Negative) H 12/02/22 10:40 Ur Leukocyte Esterase 2+ (Negative) H 12/02/22 10:40 Urine RBC 0-4 /hpf (0-2) H 12/02/22 10:40 Urine WBC 25-40 /hpf (0-5) H 12/02/22 10:40 Ur Squamous Epith Cells 55-80 /hpf (0-5) H 12/02/22 10:40 Amorphous Sediment Not Reportable 12/02/22 10:40 Urine Bacteria 2+ /hpf (NONE) H 12/02/22 10:40 Urine Mucus 2+ /hpf 12/02/22 10:40 EKG Data EKG 1: EKG interpretation date: 12/02/22 Interpretation: Sinus tachycardia, 103 bpm, no ST segment elevation or depression seen. EKG 2: EKG interpretation date: 12/02/22 Interpretation: 2-hour EKG sinus rhythm, 90 bpm, no ST segment elevation or depression seen. No acute change between EKGs. Discharge Plan Discharge Patient Disposition: Home Clinical Impression: Atypical chest pain UTI (urinary tract infection) Qualifiers: Urinary tract infection type: acute cystitis Hematuria presence: with hematuria Qualified Code(s): N30.01 - Acute cystitis with hematuria Episode of syncope Qualifiers: Syncope type: unspecified Qualified Code(s): R55 - Syncope and collapse Condition: Stable Prescriptions: New Bactrim DS 800-160 mg tablet 1 tab PO BID 5 Days Qty: 10 0RF ondansetron 4 mg tablet,disintegrating 4 mg PO Q8H PRN (Reason: nausea and vomiting) Qty: 15 0RF No Action cholecalciferol (vitamin D3) 1,250 mcg (50,000 unit) capsule 1,250 mcg PO Q7D Rx Instructions: on Thursday montelukast [Singulair] 10 mg tablet 10 mg PO DAILY PRN (Reason: Allergy Symptoms) ibuprofen 800 mg tablet 800 mg PO TID PRN (Reason: pain) Qty: 60 0RF ferrous sulfate [Iron (ferrous sulfate)] 325 mg (65 mg iron) tablet 325 mg PO BID Qty: 60 0RF acetaminophen 325 mg capsule 325 mg PO Q4H PRN (Reason: fever or pain) Qty: 60 0RF oxycodone-acetaminophen 7.5-325 mg tablet 1 - 2 tab PO Q4H MDD 6 tabs PRN (Reason: Pain) ondansetron 4 mg tablet,disintegrating 4 mg PO Q6H PRN (Reason: Nausea And Vomiting) fenofibrate nanocrystallized 145 mg tablet 145 mg PO BEDTIME lidocaine 5 % ointment See Rx Instructions .ROUTE .COMPLEX Rx Instructions: APPLY TOPICALLY EVERY 4 HOURS FOR 12 HOURS THEN ALL OINTMENT OFF FOR 12 HOURS NEEDED Colace 100 mg capsule 100 mg PO BEDTIME Discharge Orders: Discharge ED (Routine); Ordered 12/02/22 Ordered By: Odin Pierson Referrals: Mar Jose, POWERHOUSE OPERATOR [Primary Care Provider] - Discharge Diet: Regular Discharge Activity: Increase activity as tolerated Patient Instructions: Chest Pain (ED), Urinary Tract Infection in Women (DC), Syncope (DC) Activity Restrictions/Additional Instructions: Follow-up with your primary care physician in the next 2 to 3 days for reevaluation. Take medications as prescribed. Return to the ER or your medical provider if condition worsens. Please read and understand discharge instructions. Thank you for choosing [facility] for your healthcare needs today. Please realize this is an emergency room and that we are providing you with a medical screening exam and this may not be complete and all inclusive of all the testing and or work up that you may need to determine your ailment or severity of your illness. It is very important that you follow up as instructed or that you return to the Emergency Department should you have concerns or if your condition changes or worsens in any way. Coding Level of Care Code ED Mechanical Project Manager for Donavon Alexandre
[2022-12-02 10:17] LABS: Basophils % 0.3 %; Eosinophils # 0.5 10^3/uL (0.0-0.8); Eosinophils % 6.2 %; Hematocrit 36.3 % (37.0-47.0); Hemoglobin 10.9 g/dL (11.5-15.3); Lymphocytes # 0.4 10^3/uL (0.8-4.8); Lymphocytes % 5.7 %; Mean Corpuscular Volume 89.9 fl (81-99); Mean Platelet Volume 9.5 fL (7.4-10.4); Monocytes # 0.4 10^3/uL (0.2-0.9); Monocytes % 5.2 %; Neutrophils # 6.06 10^3/uL (1.8-7.7); Neutrophils % 82.2 %; Nucleated Red Blood Cells % 0 %; Platelet Count 321 10^3/cmm (130-400); Red Blood Count 4.04 10^6/uL (4.1-5.3); White Blood Count 7.4 10^3/uL (4.0-10.0)
[2022-12-02 10:35] LABS: Alanine Aminotransferase 23 U/L (0-33); Albumin Level 4.5 g/dL (3.5-5.2); Alkaline Phosphatase 81 U/L (35-105); Anion Gap 17.3 (5-19); Aspartate Amino Transferase 22 U/L (0-32); Blood Urea Nitrogen 11 mg/dL (6-20); Calcium 9.1 mg/dL (8.5-10.5); Carbon Dioxide 25 mmol/L (22-29); Chloride 101 mmol/L (98-107); Globulin 2.9 g/dL (1.3-4.6); Glomerular Filtration Rate 52.4 mL/min (90-130); Glucose 158 mg/dL (65-115); Osmolality Calculated 291 mOsm/kg (285-295); Potassium 4.3 mmol/L (3.5-5.1); Sodium 139 mmol/L (136-145); Total Protein 7.4 g/dL (6.6-8.7)
[2022-12-02 10:36] LABS: Troponin(5th) Baseline 8 ng/L (0-10)
[2022-12-02 10:45] VITALS: BP 124/84; BP 137/91; BP 150/70; PULSE 100; PULSE 110; PULSE 120; PULSE 128; RESP 14; O2SAT 93
[2022-12-02 11:16] LABS: Protein Urine 1+ (Negative); Urine Appearance Cloudy (CLEAR); Urine Color Yellow (Yellow); pH Urine 5 (5-7)
[2022-12-02 11:17] LABS: Add Urine Microscopic? YES; Bilirubin Urine 1+ (Negative); Blood Urine 2+ (Negative); Glucose Urine UA Norm (Normal); Ketones Urine 1+ (Negative); Leukocyte Esterase Urine 2+ (Negative); Nitrate Urine Negative (Negative); Urobilinogen Urine 4 mg/dL (Negative)
[2022-12-02 11:18] LABS: Bacteria Urine 2+ /hpf; Mucus Urine 2+ /hpf; RBC Urine 0-4 /hpf (0-2); Squamous Epithelial Cell Urine 55-80 /hpf (0-5); WBC Urine 25-40 /hpf (0-5)
[2022-12-02] MEDS: sodium chloride 0.9% 1,000 ML 999 ML IV (11:27)
--- NOTE | 2022-12-02 11:59 | ECG_ITS ---
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 Measurements Intervals [place] Rate: 90 P: 61 FL: 179 QRS: 64 QRSD: 78 T: 61 QT: 347 QTc: 427 Interpretive Statements SINUS RHYTHM Compared to ECG 12/02/2022 11:04:18 Sinus tachycardia no longer present Electronically Signed On 12-02-2022 15:04:28 CDT by Neftali Victor M.D. [id number]
[2022-12-02] MEDS: metoclopramide 5 mg/mL SDV 2 mL 10 MG IVP (13:19)
[2022-12-02] MEDS: ketorolac 30 mg/mL INJ IVP (13:19)
== END 2022-12-02 13:45 | disposition home or self-care (01) ==
PROVIDERS: Emergency Provider Physician Assistant; PCP Nurse Practitioner Family
DX: R55 Syncope and collapse (principal); R07.89 Other chest pain; N30.01 Acute cystitis with hematuria
CPT/HCPCS: 36415; 70450; 71045; 80053; 81001; 84484; 85025; 93005; 96361; 96374; 96375; 99285; J1885; J2765; J7030

== ENCOUNTER 2022-12-17 20:00 | Outpatient (CLI) | payer MEDICAID, SELFPAY | END 2022-12-17 20:01 | disposition home or self-care (01) | LOC: SLEEP 12-18 05:20 | PROVIDERS: PCP Nurse Practitioner Family; Visit Provider Family Medicine | DX: G47.33 Obstructive sleep apnea (adult) (pediatric) (principal) | CPT/HCPCS: 95811 ==

== ENCOUNTER 2022-12-29 08:08 | Outpatient (CLI) | payer MEDICAID, SELFPAY ==
--- NOTE | 2022-12-29 | ECG_ITS ---
[facility] Test Date: 2022-12-29 Pat Name: Oswald Conner Department: Room: Gender: Female Line Person: María Elena Boothe : 1970 Requested By: Mar Carpenter Order Number: [id number] Tom MD: Neftali Victor M.D. Interpretive Statements NAME OF STUDY: TREADMILL STRESS TEST INDICATION: [Shortness of Breath, ] EXERCISE DATA: The patient was exercised by Luther protocol. Baseline heart rate was 99 beats per minute. Baseline blood pressure was 146/88 millimeters of mercury. Target heart rate was 144 beats per minute. Maximum heart rate achieved was 154, which was 106% of the target heart rate. Maximum blood pressure was 173/77 millimeters of mercury. Total exercise time was 2-minute 1 second. Maximum METs achieved was 4.6. The reason for ending the test was maximal effort achieved. The patient complained of shortness of breath during the stress test, which then resolved at the end of the test. ELECTROCARDIOGRAM: BASELINE: Showed sinus rhythm, normal axis, no significant ST-T changes at the baseline noted. [] EXERCISE: At the peak exercise level, [] No significant ST-T changes suggestive of ischemia noted. [] RECOVERY: During the recovery period, heart rate dropped appropriately. No significant ST-T changes in the recovery suggestive of ischemia noted. [] CONCLUSION: 1. Exercise capacity is poor 2. Heart rate response was appropriate. 3. Blood pressure response was appropriate 4. Symptoms not suggestive of ischemia. 5. Stress test does not show evidence of ischemia. Electronically Signed On 01-03-2023 21:52:14 CDT by Neftali Victor M.D. [id number]
[2022-12-29 08:14] VITALS: BP 149/89; PULSE 109; BMI 43.5
== END 2022-12-29 08:09 | disposition home or self-care (01) ==
LOC: CDL 08:10
PROVIDERS: PCP Nurse Practitioner Family; Visit Provider Nurse Practitioner Family
DX: R06.02 Shortness of breath (principal)
CPT/HCPCS: 93017

== ENCOUNTER 2023-03-01 18:36 | Emergency (ER) | payer MEDICAID, SELFPAY ==
[2023-03-01 19:47] VITALS: BP 165/80; PULSE 98; RESP 16; TEMP 36.7; O2SAT 98; BMI 43.5
--- NOTE | 2023-03-01 23:18 | ED_ITS ---
HPI - Neck Pain/Injury General: Chief Complaint: Neck Pain/Injury Stated Complaint: Neck pain to Rt elbow Time Seen by Provider: 03/01/23 23:13 History of Present Illness: 52-year-old female comes in today for complaints of pain to the right neck. Patient reports pain started this morning and she has had worsening discomfort throughout the day. Patient was unable to get rest. Patient attempted her oxycodone 7-1/2 mg that she takes for severe pain with no relief. Patient does have intervertebral disc disease of the neck. Patient appears nontoxic. Patient denies any fever. Review of Systems Const: Denies: fever(s) Musc: Reports: neck pain and extremity pain PFSH ED PFSH: Medical History Chronic back pain High cholesterol No pertinent past medical history neghx: htn,dm,thyroid,dvt/pe PCP: Mar Hughes Polyp of cervix Surgical History H/O tubal ligation History of cholecystectomy History of hysterectomy (~11/13/22) TVH, single incision mid urethral sling, cystoscopy performed at [facility] by Dr. Bartlett for cystocele and uterine prolapse. Family History Mother Diabetes Hypertension Cancer Father Lung disease Family/Other Cancer breast cancer, Family/Other Cancer pre-cancer of the colon Social History Smoking and tobacco status: never smoked Alcohol intake: never Substance/Drug Use: never Physical Exam Const: COMMON NORMALS: alert HENMT: COMMON NORMALS: normocephalic HEAD & SCALP: normocephalic Neck/C-Spine: CERVICAL SPINE: No Cervical spine tenderness and Yes Trapezius muscle tenderness (Right side interscapular) Resp: COMMON NORMALS: normal respiratory effort Cardio: COMMON NORMALS: regular rate and regular rhythm RATE: regular rate RHYTHM: regular rhythm GI: COMMON NORMALS: Soft to palpation and non-tender PALPATION: Yes Soft to palpation Extremity: COMMON NORMALS: normal to inspection NARRATIVE EXTREMITY EXAM: Distal sensation intact to the right upper extremity, normal range of motion. Tenderness noted in the right interscapular area. Neuro: SENSORIUM/ORIENTATION: Yes alert Skin: COMMON NORMALS: turgor normal GENERAL SKIN EXAM: turgor normal Course ED course: 0100, 2 trigger point injections were given along the interscapular area of the right shoulder. Patient was given 5 mL of 1% lidocaine and 2 injections with a 22-gauge 1-1/2 inch needle. Patient reported good pain relief with improved comfort. Vital Signs: Vital signs: Vital Signs Temperature 98.0 F 03/01/23 19:47 Pulse Rate 85 03/02/23 01:11 Respiratory Rate 18 03/02/23 01:11 Blood Pressure 143/89 03/02/23 01:11 Pulse Oximetry 97 03/02/23 01:11 Oxygen Delivery Me thod Room Air 03/01/23 23:20 MDM - Neck Pain/Injury Medical Decision Making 52-year-old female comes in today with right shoulder and neck pain. On exam patient appears nontoxic. Patient has tenderness on palpation of the interscapular area of the right shoulder. Range of motion is normal but aggravates pain. Distal pulses and sensation are intact. No swelling or edema is noted to the arm. Differential diagnosis includes but not limited to intervertebral disc disease, facet arthropathy, interscapular pain, abscess. Reviewed exam with patient with recommendations of treatment and follow-up. Patient was given medications for pain and was provided 2 trigger point injections with lidocaine with relief of discomfort. Patient was recommended to follow-up with primary care for further instructions and continue routine care otherwise as needed. Discharge Plan Discharge Patient Disposition: Home Clinical Impression: Interscapular pain Condition: Stable Prescriptions: No Action cholecalciferol (vitamin D3) 1,250 mcg (50,000 unit) capsule 1,250 mcg PO Q7D Rx Instructions: on Thursday ibuprofen 800 mg tablet 800 mg PO Q8H estradiol 0.01 % (0.1 mg/gram) cream 1 g vaginal DAILY Qty: 42.5 3RF oxybutynin chloride 5 mg tablet extended release 24hr 5 mg PO DAILY Qty: 30 3RF estradiol 1 mg tablet 1 mg PO DAILY Qty: 90 3RF montelukast [Singulair] 10 mg tablet 10 mg PO DAILY PRN (Reason: Allergy Symptoms) ferrous sulfate [Iron (ferrous sulfate)] 325 mg (65 mg iron) tablet 325 mg PO BID Qty: 60 0RF acetaminophen 325 mg capsule 325 mg PO Q4H PRN (Reason: fever or pain) Qty: 60 0RF ondansetron 4 mg tablet,disintegrating 4 mg PO Q6H PRN (Reason: Nausea And Vomiting) fenofibrate nanocrystallized 145 mg tablet 145 mg PO BEDTIME lidocaine 5 % ointment See Rx Instructions .ROUTE .COMPLEX Rx Instructions: APPLY TOPICALLY EVERY 4 HOURS FOR 12 HOURS THEN ALL OINTMENT OFF FOR 12 HOURS NEEDED ondansetron 4 mg tablet,disintegrating 4 mg PO Q8H PRN (Reason: nausea and vomiting) Qty: 15 0RF Discharge Orders: Discharge ED (Routine); Ordered 03/02/23 Ordered By: Alex Larios Referrals: Mar Jose FNP [Primary Care Provider] - Discharge Diet: Usual diet Discharge Activity: Increase activity as tolerated Patient Instructions: Musculoskeletal Pain (ED), Opioid Safety, Pain Management Activity Restrictions/Additional Instructions: Continue with routine care. Use ice or heat to the area for further pain relief. Follow-up with primary care for further instruction. Return to ED for new concerns. Coding Level of Care Code ED Instrumentation Technologist for Donavon Alexandre
[2023-03-01 23:20] VITALS: BP 174/98; PULSE 96; RESP 18; O2SAT 98
[2023-03-01] MEDS: dexamethasone 10 mg/mL INJ IM (23:58)
[2023-03-01] MEDS: HYDROmorphone 1 mg/mL INJ 1 mL IVP (23:58)
[2023-03-02 01:11] VITALS: BP 143/89; PULSE 85; RESP 18; O2SAT 97
== END 2023-03-02 01:14 | disposition home or self-care (01) ==
PROVIDERS: Emergency Provider Nurse Practitioner Family; PCP Nurse Practitioner Family
DX: M25.511 Pain in right shoulder (principal)
CPT/HCPCS: 96372; 96374; 99284; J1100; J1170

== ENCOUNTER 2023-03-05 10:58 | Outpatient (CLI) | payer MEDICAID, SELFPAY ==
--- NOTE | 2023-03-05 | XR_ITS ---
WS: [id number] Exam: XR cervical spine 3V* [id number] Date/Time of Exam: 03/05/2023 11:15 AM Reason For Exam: NECK PAIN No acute fracture or dislocation. There is straightening and reversal of the normal cervical C curve. There is degenerative disc narrowing from C5 to C7 with anterior spondylosis. Mild degenerative ante rolisthesis of C4 on C5. Normal paraspinal soft tissue structures. The odontoid is intact. XR/XR cervical spine 3V* [id number] IMPRESSION: 1. Straightening and reversal of the normal cervical C curve. No fracture or ma lalignment. 2. Degenerative changes and spondylosis from C5 to C7. Facet DJD. 3. Mild degenerative anterolisthesis of C3-4 on C5.
== END 2023-03-05 10:59 | disposition home or self-care (01) ==
PROVIDERS: PCP Nurse Practitioner Family; Visit Provider Nurse Practitioner Family
DX: M47.812 Spondylosis without myelopathy or radiculopathy, cervical region (principal)
CPT/HCPCS: 72040

== ENCOUNTER 2023-03-18 09:28 | Outpatient (CLI) | payer MEDICAID, SELFPAY ==
--- NOTE | 2023-03-18 09:47 | CTR_ITS ---
PROCEDURE INFORMATION: Exam: CT Cervical Spine Without Contrast Exam date and time: 03/18/2023 9:57 AM Age: 52 years old Clinical indication: Pain; Cervicalgia; Patient HX: Swelling on posterior aspect of low neck, tingling and numbness in RT arm x 2 wks TECHNIQUE: Imaging protocol: Computed tomography of the cervical spine without contrast. Radiation optimization: All CT scans at this facility use at least one of these dose optimization techniques: automated exposure control; mA and/or kV adjustment per patient size (includes targeted exams where dose is matched to clinical indication); or iterative reconstruction. REPORTING DATA: Count of CT and Cardiac NM exams in prior 12 months: This patient has received 2 known CTs and 0 known cardiac nuclear medicine studies in the 12 months prior to the current study. COMPARISON: CR XR cervical spine 3V* [id number] 03/05/2023 11:15 AM RADIATION DOSE METRICS: Total DLP (mGy-cm): 222.77 FINDINGS: Bones/joints: There is anterolisthesis at C4-C5. No anterior wedging deformity is seen. No acute lucent fracture lines visualized. Cervical facet arthropathy is most severe on the left at C4-C5 and bilaterally at C7-T1. There is an 8 mm lucent focus in the right posterior C7 vertebral body. The appearance of the lesion suggests possible intraosseous hemangioma, but this is nonspecific. If there is a known primary neoplasm, metastatic disease would have be excluded. If this correlates with the level of pain, could consider nonemergent follow-up MRI to better characterize. There is multilevel cervical spondylosis. No severe central canal stenosis is demonstrated by CT. Neural foraminal stenosis is seen at the C2-C3 through C7-T1 levels, on the left at C2-C3, eccentric to the left at C3-C4 through C5-C6 eccentric to the right at C6-C7 and C7-T1. Lungs: Lung apices are normal. Soft tissues: Unremarkable. CT/CT cervical spin wo con* [id number] IMPRESSION: 1. Cervical spondylosis and facet hypertrophy, with no severe central canal stenosis. Multilevel neural foraminal stenosis, as above. 2. 8 mm lucent focus in the right posterior C7 vertebral body. The appearance of the lesion suggests possible intraosseous hemangioma, but this is nonspecific. If there is a known primary neoplasm, metastatic disease would have be excluded. If this correlates with the level of pain, could consider nonemergent follow-up MRI to better characterize.
== END 2023-03-18 09:29 | disposition home or self-care (01) ==
PROVIDERS: PCP Nurse Practitioner Family; Visit Provider Nurse Practitioner Family
DX: M47.892 Other spondylosis, cervical region (principal); M54.2 Cervicalgia
CPT/HCPCS: 72125

== ENCOUNTER → 2023-04-02 09:18 | Outpatient (BNVA) | payer MEDICAID, SELFPAY | PROVIDERS: PCP Nurse Practitioner Family; Visit Provider Physician Assistant | DX: M47.22 Other spondylosis with radiculopathy, cervical region (principal); M50.30 Other cervical disc degeneration, unspecified cervical region; M50.322 Other cervical disc degeneration at C5-C6 level; M50.323 Other cervical disc degeneration at C6-C7 level; M48.02 Spinal stenosis, cervical region; M25.78 Osteophyte, vertebrae | CPT/HCPCS: 72040; 99214 ==

== ENCOUNTER 2023-05-20 19:44 | Observation (INO) | payer MEDICAID, SELFPAY ==
[2023-05-20 19:50] VITALS: BP 252/110; PULSE 127; RESP 20; TEMP 36.9; O2SAT 98; BMI 41.8
--- NOTE | 2023-05-20 19:54 | XRR_ITS ---
PROCEDURE INFORMATION: Exam: XR Chest Exam date and time: 05/20/2023 8:05 PM Age: 52 years old Clinical indication: Other: Aspiration TECHNIQUE: Imaging protocol: Radiologic exam of the chest. Views: 1 view. COMPARISON: CR XR chest 1V portable [id number] 12/02/2022 10:15 AM FINDINGS: Lungs: Unremarkable. No consolidation. Pleural spaces: Unremarkable. No pleural effusion. No pneumothorax. Heart/Mediastinum: Unremarkable. No cardiomegaly. Bones/joints: Unremarkable. XR/XR chest 1V portable [id number] IMPRESSION: No acute findings.
--- NOTE | 2023-05-20 20:05 | W.ED.GENADLT ---
HPI - General Adult General: Chief complaint: Airway/Esophagus Foreign Body Stated complaint: Inhaled Popcorn Time Seen by Provider: 05/20/23 19:54 Source: patient Mode of arrival: ambulatory Limitations: no limitations History of Present Illness: Patient is a 52-year-old female who presents the emergency room with foreign object in airway. Patient states that she was eating popcorn approximately 30 minutes ago and inhaled popcorn. Patient reports shortness of breath and dyspnea. Denies any chest pain. No other complaints at this time. Onset (ago): minute(s) (30) Associated symptoms: Reports dyspnea; Deny chest pain, nausea, palpitations or vomiting Review of Systems Const: Denies: fever(s) or chills Eyes: Denies: change in vision or blurry vision ENMT: Reports: odynophagia and hoarseness Card: Denies: chest pain or palpitations Resp: Reports: dyspnea and stridor GI: Denies: abdominal pain, nausea or vomiting : Denies: flank pain or difficulty voiding Musc: Denies: neck pain or back pain PFS ED PFSH: Medical History (Updated 04/02/23 @ 12:22 by Rodrigo Guillory PA-C) Cervical spondylosis with radiculopathy Chronic back pain High cholesterol No pertinent past medical history neghx: htn,dm,thyroid,dvt/pe PCP: Mar Hughes Polyp of cervix Surgical History H/O tubal ligation History of cholecystectomy History of hysterectomy (~11/13/22) TVH, single incision mid urethral sling, cystoscopy performed at [facility] by Dr. Bartlett for cystocele and uterine prolapse. Family History Mother Diabetes Hypertension Cancer Father Lung disease Family/Other Cancer breast cancer, Family/Other Cancer pre-cancer of the colon Social History Smoking and tobacco status: never smoked Alcohol intake: never Substance/Drug Use: never Physical Exam Const: COMMON NORMALS: patient oriented x3 and alert GENERAL APPEARANCE: in distress and anxious ORIENTATION/CONSCIOUSNESS: Yes awake HENMT: COMMON NORMALS: normocephalic HEAD & SCALP: normocephalic MOUTH: Normal oral and palatal mucosa present THROAT: posterior oropharynx normal Eye: COMMON NORMALS: Equal, round and reactive pupils present PUPIL: Yes Equal, round and reactive pupils present Neck/C-Spine: COMMON NORMALS: full ROM Lymph: LYMPHATIC: no lymphadenopathy noted Chest: CHEST: Yes Symmetrical chest wall rise Resp: COMMON NORMALS: clear to auscultation bilaterally EFFORT & INSPECTION: Yes symmetric chest movement, Yes respiratory distress, Yes stridor and Yes tripod positioning AUSCULTATION: clear to auscultation bilaterally Cardio: COMMON NORMALS: S1 normal heart sound present HEART SOUNDS: S1 normal heart sound present GI: COMMON NORMALS: Normal to inspection, nondistended, normoactive bowel sounds present Extremity: COMMON NORMALS: normal to inspection Neuro: COMMON NORMALS: patient oriented x3 SENSORIUM/ORIENTATION: Yes alert Course Vital Signs: Vital signs: Vital Signs Temperature 98.5 F 05/20/23 19:50 Pulse Rate 94 05/20/23 20:28 Respiratory Rate 20 H 05/20/23 20:28 Blood Pressure 150/108 05/20/23 20:28 Pulse Oximetry 98 05/20/23 20:28 Oxygen Delivery Me thod Room Air 05/20/23 20:28 MDM - General Adult Medical Decision Making Patient presents with a possible foreign body aspiration possible popcorn kernel. Patient did have quite a bit of coughing here but no severe distress she actually improved a little after albuterol. I spoke to pulmonology along with hospitalist will admit for observation overnight she had no improvement likely needs a bronchoscopy. Medical Records I reviewed the patient's medical records. Lab Data I reviewed the patient's lab results. 05/20/23 20:15 05/20/23 20:15 Radiology Impressions Chest X-Ray 05/20/23 19:54 IMPRESSION: No acute findings. Laboratory Results WBC 6.27 10^3/uL (3.29-11.43) 05/20/23 20:15 RBC 3.86 10^6/uL (3.85-5.65) 05/20/23 20:15 Hgb 11.70 g/dL (11.27-16.99) 05/20/23 20:15 Hct 34.3 % (36-47) L 05/20/23 20:15 MCV 88.9 fl (85-98) 05/20/23 20:15 MCH 30.3 pg (27-33) 05/20/23 20:15 MCHC 34.1 g/dL (30-55) 05/20/23 20:15 RDW 12.9 % (12.1-15.1) 05/20/23 20:15 Plt Count 390 10^3/cmm (157-399) 05/20/23 20:15 MPV 8.8 fL (7.4-10.4) 05/20/23 20:15 Neut % (Auto) 55.2 % 05/20/23 20:15 Lymph % (Auto) 30.8 % 05/20/23 20:15 Major % (Auto) 8.9 % 05/20/23 20:15 Eos % (Auto) 4.3 % 05/20/23 20:15 Baso % (Auto) 0.3 % 05/20/23 20:15 Neut # (Auto) 3.46 10^3/uL (1.8-7.7) 05/20/23 20:15 Lymph # (Auto) 1.9 10^3/uL (0.8-4.8) 05/20/23 20:15 Major # (Auto) 0.6 10^3/uL (0.2-0.9) 05/20/23 20:15 Eos # (Auto) 0.3 10^3/uL (0.0-0.8) 05/20/23 20:15 Baso # (Auto) 0.0 10^3/uL (0.0-0.1) 05/20/23 20:15 Nucleated RBC % (auto) 0 % 05/20/23 20:15 Nucleated RBCs # 0.0 /100WBC 05/20/23 20:15 Sodium 137 mmol/L (136-145) 05/20/23 20:15 Potassium 3.9 mmol/L (3.5-5.1) 05/20/23 20:15 Chloride 101 mmol/L (98-107) 05/20/23 20:15 Carbon Dioxide 23 mmol/L (22-29) 05/20/23 20:15 Anion Gap 16.9 (5-19) 05/20/23 20:15 BUN 11 mg/dL (6-20) 05/20/23 20:15 Creatinine 0.9 mg/dL (0.5-0.9) 05/20/23 20:15 GFR Calculation 66.0 mL/min (90-130) L 05/20/23 20:15 Glucose 148 mg/dL (65-115) H 05/20/23 20:15 Calculated Osmolality 286 mOsm/kg (285-295) 05/20/23 20:15 Calcium 9.7 mg/dL (8.5-10.5) 05/20/23 20:15 Total Bilirubin 0.5 mg/dL (0.15-1.2) 05/20/23 20:15 AST 27 U/L (0-32) 05/20/23 20:15 ALT 31 U/L (0-33) 05/20/23 20:15 Alkaline Phosphatase 59 U/L (35-105) 05/20/23 20:15 Total Protein 8.0 g/dL (6.6-8.7) 05/20/23 20:15 Albumin 4.2 g/dL (3.5-5.2) 05/20/23 20:15 Globulin 3.8 g/dL (1.3-4.6) 05/20/23 20:15 All radiology interpretation(s) finalized by discharge Discharge Plan Discharge Condition: Stable Prescriptions: No Action cholecalciferol (vitamin D3) 1,250 mcg (50,000 unit) capsule 1,250 mcg PO Q7D Rx Instructions: on Thursday ibuprofen 800 mg tablet 800 mg PO Q8H estradiol 0.01 % (0.1 mg/gram) cream 1 g vaginal DAILY Qty: 42.5 3RF oxybutynin chloride 5 mg tablet extended release 24hr 5 mg PO DAILY Qty: 30 3RF estradiol 1 mg tablet 1 mg PO DAILY Qty: 90 3RF montelukast [Singulair] 10 mg tablet 10 mg PO DAILY PRN (Reason: Allergy Symptoms) ferrous sulfate [Iron (ferrous sulfate)] 325 mg (65 mg iron) tablet 325 mg PO BID Qty: 60 0RF acetaminophen 325 mg capsule 325 mg PO Q4H PRN (Reason: fever or pain) Qty: 60 0RF ondansetron 4 mg tablet,disintegrating 4 mg PO Q6H PRN (Reason: Nausea And Vomiting) fenofibrate nanocrystallized 145 mg tablet 145 mg PO BEDTIME lidocaine 5 % ointment See Rx Instructions .ROUTE .COMPLEX Rx Instructions: APPLY TOPICALLY EVERY 4 HOURS FOR 12 HOURS THEN ALL OINTMENT OFF FOR 12 HOURS NEEDED ondansetron 4 mg tablet,disintegrating 4 mg PO Q8H PRN (Reason: nausea and vomiting) Qty: 15 0RF Referrals: Mar Jose FNP [Primary Care Provider] - Coding Level of Care Code ED Headlight Adjuster for Donavon Alexandre
[2023-05-20] MEDS: ondansetron 2 mg/ML SDV 2 mL 4 MG IVP (20:13)
[2023-05-20 20:19] VITALS: PULSE 93; RESP 18; O2SAT 98
[2023-05-20] MEDS: ipratropium-albuterol 3 mL Neb INHALATION (20:19)
[2023-05-20 20:21] LABS: Basophils % 0.3 %; Eosinophils # 0.3 10^3/uL (0.0-0.8); Eosinophils % 4.3 %; Hematocrit 34.3 % (36-47); Lymphocytes # 1.9 10^3/uL (0.8-4.8); Lymphocytes % 30.8 %; Mean Corpuscular HGB Conc 34.1 g/dL (30-55); Mean Corpuscular Hemoglobin 30.3 pg (27-33); Mean Corpuscular Volume 88.9 fl (85-98); Mean Platelet Volume 8.8 fL (7.4-10.4); Monocytes # 0.6 10^3/uL (0.2-0.9); Monocytes % 8.9 %; Neutrophils # 3.46 10^3/uL (1.8-7.7); Neutrophils % 55.2 %; Nucleated Red Blood Cells % 0 %; Platelet Count 390 10^3/cmm (157-399); Red Blood Count 3.86 10^6/uL (3.85-5.65); Red Cell Distribution Width 12.9 % (12.1-15.1); White Blood Count 6.27 10^3/uL (3.29-11.43)
[2023-05-20 20:27] VITALS: PULSE 92; O2SAT 99
[2023-05-20 20:28] VITALS: BP 150/108; PULSE 94; RESP 20; O2SAT 98
--- NOTE | 2023-05-20 20:30 | PC.NURSE ---
RN into room to assess pt. Pt states that she was eating popcorn tonight around 45 minutes prior to arrival when she inhaled a popcorn kernel. Pt feels as if it is to the right of her trachea. Pt is able to handle secretions but has a strong frequent cough. Pt is dizzy and nauseaous due to this. After PIV insertion and chest XR, pt felt as if kernel moved down below her clavicle approximately 2 inches. Pt is on RA and is able to whisper to speak in short sentences.
[2023-05-20 20:42] LABS: Alanine Aminotransferase 31 U/L (0-33); Albumin Level 4.2 g/dL (3.5-5.2); Alkaline Phosphatase 59 U/L (35-105); Anion Gap 16.9 (5-19); Aspartate Amino Transferase 27 U/L (0-32); Blood Urea Nitrogen 11 mg/dL (6-20); Calcium 9.7 mg/dL (8.5-10.5); Carbon Dioxide 23 mmol/L (22-29); Chloride 101 mmol/L (98-107); Globulin 3.8 g/dL (1.3-4.6); Glucose 148 mg/dL (65-115); Osmolality Calculated 286 mOsm/kg (285-295); Potassium 3.9 mmol/L (3.5-5.1); Sodium 137 mmol/L (136-145); Total Bilirubin 0.5 mg/dL (0.15-1.2)
--- NOTE | 2023-05-20 21:40 | P.HP_ITS ---
Providers/Chief Complaint Admitting Physician: Dayron Barahona MD Primary Care Provider: Mar JoseP Chief Complaint: Inhaled Popcorn History of Present Illness Oswald Conner is a 52 year old female with a past medical history of chronic back pain, history of smoking almost 5 years ago, hyperlipidemia, who presents to [facility] as she aspirated a popcorn kernel into her airway, she started coughing and continues to have coughing fits, does have a globus s ensation, does complain of hoarseness in her voice, does have wheezing on exam scattered, denies currently smoking, no fevers, chills, no rhinitis, dizziness, no shortness of breath, no lip swelling, no tongue swelling, no hematemesis Review of Systems ENMT: Reports: hoarseness Card: Denies: chest pain Resp: Reports: non-productive cough and wheezing GI: Denies: abdominal pain Medications/Allergies Home Medications Medication Instructions Recorded Confirmed Last Taken Type cholecalciferol (vitamin D3) 1,250 1,250 mcg PO Q7D 04/30/22 04/02/23 11/01/22 History mcg (50,000 unit) capsule montelukast 10 mg tablet 10 mg PO DAILY PRN Allergy Symptoms 11/11/22 04/02/23 11/10/22 History (Singulair) acetaminophen 325 mg capsule 325 mg PO Q4H PRN fever or pain 11/14/22 04/02/23 Unknown Rx #60 caps ferrous sulfate 325 mg (65 mg 325 mg PO BID #60 tabs 11/14/22 04/02/23 Unknown Rx iron) tablet (Iron (ferrous sulfate)) fenofibrate nanocrystallized 145 145 mg PO BEDTIME 12/02/22 04/02/23 2 Weeks Ago History mg tablet ~11/18/22 lidocaine 5 % topical ointment See Rx Instructions .Route .COMPLEX 12/02/22 04/02/23 Unknown History ondansetron 4 mg disintegrating 4 mg PO Q6H PRN Nausea And Vomiting 12/02/22 04/02/23 Unknown History tablet ondansetron 4 mg disintegrating 4 mg PO Q8H PRN nausea and 12/02/22 04/02/23 Unknown Rx tablet vomiting #15 tabs ibuprofen 800 mg tablet 800 mg PO Q8H 01/13/23 04/02/23 Unknown History estradiol 0.01% (0.1 mg/gram) 1 g vaginal DAILY #42.5 grams 02/19/23 04/02/23 Unknown Rx vaginal cream oxybutynin chloride 5 mg 5 mg PO DAILY #30 tabs 02/19/23 04/02/23 Unknown Rx tablet,extended release 24 hr estradiol 1 mg tablet 1 mg PO DAILY #90 tabs 02/27/23 04/02/23 Unknown Rx Allergies Allergy/AdvReac Type Severity Reaction Status Date / Time prochlorperazine Allergy angry Verified 04/02/23 08:59 [From Compazine] PFSH Acute PFSH: Medical History Cervical spondylosis with radiculopathy Chronic back pain High cholesterol No pertinent past medical history neghx: htn,dm,thyroid,dvt/pe PCP: Mar Gingrich Polyp of cervix Surgical History H/O tubal ligation History of cholecystectomy History of hysterectomy (~11/13/22) TVH, single incision mid urethral sling, cystoscopy performed at [facility] by Dr. Bartlett for cystocele and uterine prolapse. Family History Mother Diabetes Hypertension Cancer Father Lung disease Family/Other Cancer breast cancer, Family/Other Cancer pre-cancer of the colon Social History Smoking and tobacco status: never smoked Alcohol intake: never Substance/Drug Use: never Vitals/I&O/Wt Last Vital Signs Temp 98.5 F 05/20/23 19:50 Pulse 94 05/20/23 20:28 Resp 20 H 05/20/23 20:28 BP 150/108 05/20/23 20:28 Pulse Ox 98 05/20/23 20:28 O2 Del Method Room Air 05/20/23 20:28 Weight last 48 hrs Weight 97.069 kg Physical Exam Const: COMMON NORMALS: no acute distress and patient oriented x3 HENMT: COMMON NORMALS: normocephalic HEAD & SCALP: normocephalic Eye: COMMON NORMALS: Equal, round and reactive pupils present and EOMs intact bilaterally Neck/C-Spine: COMMON NORMALS: no JVD Lymph: LYMPHATIC: no lymphadenopathy noted Resp: COMMON NORMALS: normal respiratory effort, No retractions and No use of accessory muscles AUSCULTATION: wheezes Cardio: COMMON NORMALS: regular rate, regular rhythm, S1 normal heart sound present and S2 normal heart sound present RATE: regular rate RHYTHM: regular rhythm HEART SOUNDS: S1 normal heart sound present and S2 normal heart sound present GI: COMMON NORMALS: Normal to inspection, nondistended, normoactive bowel sounds present, Soft to palpation and non-tender Extremity: COMMON NORMALS: no calf tenderness and no pedal edema Neuro: COMMON NORMALS: patient oriented x3 Psych: COMMON NORMALS: mental status grossly normal Data 05/20/23 20:15 05/20/23 20:15 A&P Assessment and plan (1) Aspiration of foreign body into lower respiratory tract: (2) Globus sensation: Plan Aspiration of polyp cold kernel into airway -With complaints of cough, globus sensation, hoarseness -ER provider spoken to Dr. Gunn, n.p.o. midnight, plan for bronchoscopy tomorrow morning -Currently she is resting comfortably, not in respiratory distress on room air, continues to have coughing episodes, globus sensation -We will start on Decadron -DuoNebs -Tessalon Perles as needed for cough -Clear liquids for now -Monitor respiratory status closely -Full code -SCDs for DVT prophylaxis, Lovenox on hold in plan for bronchoscopy tomorrow Attestations Medical Necessity Statement*: Patient requires hospitalization, outpatient observation for aspiration of popcorn kernel and airway with wheezing, globus sensation, requiring bronchoscopy Diagnoses Aspiration of foreign body into lower respiratory tract T17.808A Globus sensation R09.A2
[2023-05-20 22:07] VITALS: BP 130/76; PULSE 88; RESP 17; TEMP 36.5; O2SAT 97
[2023-05-20 22:21] VITALS: BP 145/84; PULSE 95; RESP 20; O2SAT 99
[2023-05-20] MEDS: dexamethasone 10 mg/mL INJ 6 MG IVP (22:30)
[2023-05-20] MEDS: pantoprazole 40 mg SDV IVP (22:31)
[2023-05-20] MEDS: dextrose 5%-sod chloride 0.9% 1,000 ML 100 ML IV (22:31)
[2023-05-20] MEDS: diphenhydrAMINE 25 mg Capsule PO (23:29)
[2023-05-21] VITALS (14 sets, daily range): BP systolic 114–154; BP diastolic 70–98; PULSE 81–120; RESP 14–93; TEMP 36.1–36.7; O2SAT 92–98
--- NOTE | 2023-05-21 08:29 | P.CONIM_ITS ---
Providers/Reason For Consult Consulting Physician/Specialty*: Sherman Gunn MD/pulmonary Reason for Consult*: Suspected aspiration of foreign body Requesting Physician: Dr. Kerry Maddox Attending Physician: Dayron Barahona MD Primary Care Provider: Mar Jose History of Present Illness History of Present Illness Oswald Conner is a 52 year old female presented to emergency room with foreign object in airway. She stated eating popcorn approximately 30 minutes prior to arriving to ER and inhaled popcorn. She was reporting shortness of breath and dyspnea. Denied any chest pain. she continued to have severe coughing fits and has globus sensation, associated hoarseness of voice in her voice. ER physician consulted Pulmonary service for bronchoscopic evaluation and as patient is hemodynamically stable and pulmonology not on-call for the night-she was admitted for overnight observation and pulmonary evaluation the next day. I have seen patient at bedside today morning- She did admit aspirating popcorn kernel-however she has some concerns about anesthesia prior to bronchoscopy as that she underwent surgical procedure earlier this year at this hospital and has difficulty waking up from surgery. S he also mentioned that her cough has improved but she is not sure if she has coughed up the popcorn kernel. States her globus sensation in throat is better as well as hoarseness of voice is better. She has history of PRANAY and uses CPAP She denied any complaints at this point of time. Review of Systems General: Reports: 10 or more systems reviewed and unremarkable except in HPI and below Medications/Allergies Home Medications Medication Instructions Recorded Confirmed Last Taken Type cholecalciferol (vitamin D3) 1,250 1,250 mcg PO Q7D 04/30/22 05/21/23 05/15/23 History mcg (50,000 unit) capsule montelukast 10 mg tablet 10 mg PO DAILY PRN Allergy Symptoms 11/11/22 05/21/23 11/10/22 History (Singulair) acetaminophen 325 mg capsule 325 mg PO Q4H PRN fever or pain 11/14/22 05/21/23 Unknown Rx #60 caps fenofibrate nanocrystallized 145 145 mg PO BEDTIME 12/02/22 05/21/23 2 Weeks Ago History mg tablet ~11/18/22 lidocaine 5 % topical ointment See Rx Instructions .Route .COMPLEX 12/02/22 05/21/23 Unknown History ondansetron 4 mg disintegrating 4 mg PO Q8H PRN nausea and 12/02/22 05/21/23 Unknown Rx tablet vomiting #15 tabs ibuprofen 800 mg tablet 800 mg PO Q8H PRN Pain 01/13/23 05/21/23 2 Weeks Ago H istory ~05/07/23 estradiol 0.01% (0.1 mg/gram) 1 g vaginal DAILY #42.5 grams 02/19/23 05/21/23 05/18/23 Rx vaginal cream oxybutynin chloride 5 mg 5 mg PO DAILY #30 tabs 02/19/23 05/21/23 Unknown Rx tablet,extended release 24 hr estradiol 1 mg tablet 1 mg PO DAILY #90 tabs 02/27/23 05/21/23 05/19/23 Rx apple cider vinegar 300 mg tablet 300 mg PO QAM 05/21/23 05/21/23 05/18/23 History cinnamon bark 500 mg capsule 500 mg PO QAM 05/21/23 05/21/23 05/18/23 History (Cinnamon) omega-3 fatty acids-fish oil 684 1 cap PO QAM 05/21/23 05/21/23 05/18/23 History mg-1,200 mg capsule,delayed release oxycodone-acetaminophen 7.5 mg-325 1 - 2 tab PO Q4H PRN Pain 05/21/23 05/21/23 05/20/23 History mg tablet vitamin B complex 1 tab PO QAM 05/21/23 05/21/23 05/18/23 History vitamin E 268 mg (400 unit) capsule 268 mg PO QAM 05/21/23 05/21/23 05/18/23 History Allergies Allergy/AdvReac Type Severity Reaction Status Date / Time prochlorperazine Allergy angry Verified 04/02/23 08:59 [From Compazine] Current Medications Generic Name Dose Route Start Last Admin Trade Name Freq PRN Reason Stop Dose Admin Dexamethasone 6 mg 05/20/23 22:07 05/20/23 22:30 Dexamethasone 10 Mg/Ml Inj IVP 6 mg Q24H KEKE Administration Dextrose/Sodium Chloride 1,000 mls @ 100 mls/hr 05/20/23 22:07 05/20/23 22:31 Dextrose 5%-Sod Chloride 0.9% IV 100 mls/hr .Q10H KEKE Administration Pantoprazole Sodium 40 mg 05/20/23 22:07 05/20/23 22:31 Pantoprazole 40 Mg Sdv IVP 40 mg Q24H KEKE Administration PFSH Acute PFSH: Medical History Cervical spondylosis with radiculopathy Chronic back pain High cholesterol No pertinent past medical history neghx: htn,dm,thyroid,dvt/pe PCP: Mar Gingrich Polyp of cervix Surgical History H/O tubal ligation History of cholecystectomy History of hysterectomy (~11/13/22) TVH, single incision mid urethral sling, cystoscopy performed at [facility] by Dr. Bartlett for cystocele and uterine prolapse. Family History Mother Diabetes Hypertension Cancer Father Lung disease Family/Other Cancer breast cancer, Family/Other Cancer pre-cancer of the colon Social History Smoking and tobacco status: never smoked Alcohol intake: never Substance/Drug Use: never Vitals/I&O/Wt Last Vital Signs Temp 98.1 F 05/21/23 08:07 Pulse 88 05/21/23 08:07 Resp 16 05/21/23 07:48 BP 123/82 05/21/23 08:07 Pulse Ox 97 05/21/23 08:07 O2 Del Method Room Air 05/21/23 08:07 Weight last 48 hrs Weight 214 lb Physical Exam Narrative: General: alert, NAD HEENT: conj clear, EOMI, PERRL, mmm, Neck: supple, no meningismus Heme: no cervical LAP Respiratory: Inspection: No visible deformity of the chest wall Palpation: Trachea is mildly deviated to the right, bilateral symmetric expansion Percussion: Bilateral tympanic percussion note both anterior and posteriorly Auscultation: Bilateral clear to auscultation both anterior and posteriorly, no crackles wheezing or rhonchi Cardiovascular: rrr, nl s1s2, no mrg Abdomen: soft, nt, nd, no r/g, bs+ Extremities: pulses +, no edema, no c/c : no CVA tenderness Skin: intact, no rash MSK: no back or neck pain Neurologic: grossly intact Data 05/20/23 20:15 05/20/23 20:15 Other Labs: Radiology Impressions Chest X-Ray 05/20/23 19:54 IMPRESSION: No acute findings. Laboratory Results WBC 6.27 10^3/uL (3.29-11.43) 05/20/23 20:15 RBC 3.86 10^6/uL (3.85-5.65) 05/20/23 20:15 Hgb 11.70 g/dL (11.27-16.99) 05/20/23 20:15 Hct 34.3 % (36-47) L 05/20/23 20:15 MCV 88.9 fl (85-98) 05/20/23 20:15 MCH 30.3 pg (27-33) 05/20/23 20:15 MCHC 34.1 g/dL (30-55) 05/20/23 20:15 RDW 12.9 % (12.1-15.1) 05/20/23 20:15 Plt Count 390 10^3/cmm (157-399) 05/20/23 20:15 MPV 8.8 fL (7.4-10.4) 05/20/23 20:15 Neut % (Auto) 55.2 % 05/20/23 20:15 Lymph % (Auto) 30.8 % 05/20/23 20:15 [place] % (Auto) 8.9 % 05/20/23 20:15 Eos % (Auto) 4.3 % 05/20/23 20:15 Baso % (Auto) 0.3 % 05/20/23 20:15 Neut # (Auto) 3.46 10^3/uL (1.8-7.7) 05/20/23 20:15 Lymph # (Auto) 1.9 10^3/uL (0.8-4.8) 05/20/23 20:15 [place] # (Auto) 0.6 10^3/uL (0.2-0.9) 05/20/23 20:15 Eos # (Auto) 0.3 10^3/uL (0.0-0.8) 05/20/23 20:15 Baso # (Auto) 0.0 10^3/uL (0.0-0.1) 05/20/23 20:15 Nucleated RBC % (auto) 0 % 05/20/23 20:15 Nucleated RBCs # 0.0 /100WBC 05/20/23 20:15 Sodium 137 mmol/L (136-145) 05/20/23 20:15 Potassium 3.9 mmol/L (3.5-5.1) 05/20/23 20:15 Chloride 101 mmol/L (98-107) 05/20/23 20:15 Carbon Dioxide 23 mmol/L (22-29) 05/20/23 20:15 Anion Gap 16.9 (5-19) 05/20/23 20:15 BUN 11 mg/dL (6-20) 05/20/23 20:15 Creatinine 0.9 mg/dL (0.5-0.9) 05/20/23 20:15 GFR Calculation 66.0 mL/min (90-130) L 05/20/23 20:15 Glucose 148 mg/dL (65-115) H 05/20/23 20:15 Calculated Osmolality 286 mOsm/kg (285-295) 05/20/23 20:15 Calcium 9.7 mg/dL (8.5-10.5) 05/20/23 20:15 Total Bilirubin 0.5 mg/dL (0.15-1.2) 05/20/23 20:15 AST 27 U/L (0-32) 05/20/23 20:15 ALT 31 U/L (0-33) 05/20/23 20:15 Alkaline Phosphatase 59 U/L (35-105) 05/20/23 20:15 Total Protein 8.0 g/dL (6.6-8.7) 05/20/23 20:15 Albumin 4.2 g/dL (3.5-5.2) 05/20/23 20:15 Globulin 3.8 g/dL (1.3-4.6) 05/20/23 20:15 A&P Assessment and plan (1) Aspiration of foreign body into lower respiratory tract: She did admit aspirating popcorn kernel-presented with bouts of cough and shortness of breath-symptoms appear to have relieved overnight Chest x-ray did not show any foreign body I discussed about bronchoscopic evaluation of airway inspection and possible retrieval of foreign body However she has some concerns about anesthesia prior to bronchoscopy as that she underwent surgical procedure earlier this year at this hospital and has difficulty waking up from surgery. I have informed GI team to notify for preanesthesia evaluation. I have informed the patient that we will bronchoscopy suction, forceps, foreign body retrieval mesh and the challenges in retrieving smooth bordered objects with these instruments. If we find a foreign body and unable to Retrieve-she may need cryoprobe which we do not have. She verbalized understanding and agreed to proceed with the procedure. (2) PRANAY (obstructive sleep apnea): She has history of PRANAY and uses CPAP Consult Attestations Medical Necessity Statement: Waiting for bronchoscopy for foreign body retrieval Time Spent in Patient Care: Greater than 35 minutes (>than 50% of time spent in counselling and/or direct pt care on unit) . Coding Level of Care Code 23600 Diagnoses Aspiration of foreign body into lower respiratory tract T17.808A PRANAY (obstructive sleep apnea) G47.33 Time Spent (min) 49
--- NOTE | 2023-05-21 08:41 | P.DS_ITS ---
Discharge Providers Date of Admission: 05/20/23 22:07 Date of Discharge: May 21, 2023 Attending Provider at Admission: Dayron Barahona MD Attending Provider at Discharge: Dayron Barahona MD Primary Care Provider: Mar Jose Diagnoses at Discharge Discharge Diagnosis (1) Aspiration of foreign body into lower respiratory tract: Status: Inactive (2) Globus sensation: Status: Inactive Reason for Visit Reason for Visit: Inhaled Popcorn Hospital Course Hospital Course 52-year female who present to the hospital for persistent cough hoarseness of voice after aspirating popcorn kernel. In the hospital Dr. Gunn was consulted for bronchoscopy. Patient remained hemodynamically stable did well on room air she remained afebrile.. Bronchoscopy was unremarkable, patient was discharged with stable hemodynamics, Augmentin was added at discharge Physical Exam Narrative: Pleasant and cooperative GCS 15 Hemodynamic stable Doing well on room air Discharge Data Studies Completed and Pending Completed Studies During Hospitalization Category Date Time Status XR chest 1V portable [id number] Stat Exams 05/20/23 19:54 Completed Radiology Impressions Chest X-Ray 05/20/23 19:54 IMPRESSION: No acute findings. Laboratory Results WBC 6.27 10^3/uL (3.29-11.43) 05/20/23 20:15 RBC 3.86 10^6/uL (3.85-5.65) 05/20/23 20:15 Hgb 11.70 g/dL (11.27-16.99) 05/20/23 20:15 Hct 34.3 % (36-47) L 05/20/23 20:15 MCV 88.9 fl (85-98) 05/20/23 20:15 MCH 30.3 pg (27-33) 05/20/23 20:15 MCHC 34.1 g/dL (30-55) 05/20/23 20:15 RDW 12.9 % (12.1-15.1) 05/20/23 20:15 Plt Count 390 10^3/cmm (157-399) 05/20/23 20:15 MPV 8.8 fL (7.4-10.4) 05/20/23 20:15 Neut % (Auto) 55.2 % 05/20/23 20:15 Lymph % (Auto) 30.8 % 05/20/23 20:15 [place] % (Auto) 8.9 % 05/20/23 20:15 Eos % (Auto) 4.3 % 05/20/23 20:15 Baso % (Auto) 0.3 % 05/20/23 20:15 Neut # (Auto) 3.46 10^3/uL (1.8-7.7) 05/20/23 20:15 Lymph # (Auto) 1.9 10^3/uL (0.8-4.8) 05/20/23 20:15 [place] # (Auto) 0.6 10^3/uL (0.2-0.9) 05/20/23 20:15 Eos # (Auto) 0.3 10^3/uL (0.0-0.8) 05/20/23 20:15 Baso # (Auto) 0.0 10^3/uL (0.0-0.1) 05/20/23 20:15 Nucleated RBC % (auto) 0 % 05/20/23 20:15 Nucleated RBCs # 0.0 /100WBC 05/20/23 20:15 Sodium 137 mmol/L (136-145) 05/20/23 20:15 Potassium 3.9 mmol/L (3.5-5.1) 05/20/23 20:15 Chloride 101 mmol/L (98-107) 05/20/23 20:15 Carbon Dioxide 23 mmol/L (22-29) 05/20/23 20:15 Anion Gap 16.9 (5-19) 05/20/23 20:15 BUN 11 mg/dL (6-20) 05/20/23 20:15 Creatinine 0.9 mg/dL (0.5-0.9) 05/20/23 20:15 GFR Calculation 66.0 mL/min (90-130) L 05/20/23 20:15 Glucose 148 mg/dL (65-115) H 05/20/23 20:15 Calculated Osmolality 286 mOsm/kg (285-295) 05/20/23 20:15 Calcium 9.7 mg/dL (8.5-10.5) 05/20/23 20:15 Total Bilirubin 0.5 mg/dL (0.15-1.2) 05/20/23 20:15 AST 27 U/L (0-32) 05/20/23 20:15 ALT 31 U/L (0-33) 05/20/23 20:15 Alkaline Phosphatase 59 U/L (35-105) 05/20/23 20:15 Total Protein 8.0 g/dL (6.6-8.7) 05/20/23 20:15 Albumin 4.2 g/dL (3.5-5.2) 05/20/23 20:15 Globulin 3.8 g/dL (1.3-4.6) 05/20/23 20:15 Vitals Last Vital Signs Temp 98.1 F 05/21/23 08:07 Pulse 88 05/21/23 08:07 Resp 16 05/21/23 07:48 BP 123/82 05/21/23 08:07 Pulse Ox 97 05/21/23 08:07 O2 Del Method Room Air 05/21/23 08:07 Discharge Plan Discharge Patient Disposition: Home Condition: Stable Prescriptions: New amoxicillin-pot clavulanate 875-125 mg tablet 1 tab PO BID Qty: 10 0RF Continued cholecalciferol (vitamin D3) 1,250 mcg (50,000 unit) capsule 1,250 mcg PO Q7D Rx Instructions: on Thursday ibuprofen 800 mg tablet 800 mg PO Q8H PRN (Reason: Pain) estradiol 0.01 % (0.1 mg/gram) cream 1 g vaginal DAILY Qty: 42.5 3RF oxybutynin chloride 5 mg tablet extended release 24hr 5 mg PO DAILY Qty: 30 3RF estradiol 1 mg tablet 1 mg PO DAILY Qty: 90 3RF montelukast [Singulair] 10 mg tablet 10 mg PO DAILY PRN (Reason: Allergy Symptoms) acetaminophen 325 mg capsule 325 mg PO Q4H PRN (Reason: fever or pain) Qty: 60 0RF fenofibrate nanocrystallized 145 mg tablet 145 mg PO BEDTIME lidocaine 5 % ointment See Rx Instructions .ROUTE .COMPLEX Rx Instructions: APPLY TOPICALLY EVERY 4 HOURS FOR 12 HOURS THEN ALL OINTMENT OFF FOR 12 HOURS NEEDED ondansetron 4 mg tablet,disintegrating 4 mg PO Q8H PRN (Reason: nausea and vomiting) Qty: 15 0RF oxycodone-acetaminophen 7.5-325 mg tablet 1 - 2 tab PO Q4H PRN (Reason: Pain) Rx Instructions: max 6 per day vitamin B complex Tablet 1 tab PO QAM vitamin E 268 mg (400 unit) Capsule 268 mg PO QAM Cinnamon 500 mg Capsule 500 mg PO QAM apple cider vinegar 300 mg Tablet 300 mg PO QAM omega-3 fatty acids-fish oil 684-1,200 mg Capsule,Delayed Release(Dr/Ec) 1 cap PO QAM Discharge Orders: Discharge Order (Routine); Ordered 05/21/23 Ordered By: Phylicia Willard Referrals: Sherman Gunn MD [Physician] - 05/26/23 2:00 pm () Mar Jose FNP [Primary Care Provider] - 05/26/23 10:30 am Patient Instructions: Aspiration, Bronchoscopy (Flexible), Amoxicillin/Clavulanate Potassium (By mouth) (Augmentin, Augmentin..., Opioid Safety Discharge Attestations Time Spent in Discharge Care*: greater than 30 min Quality Metrics Clinical Quality Measures [ No reported AMI, CVA or VTE this stay] Coding Level of Care Code Acute Code for Chg Fwd Diagnoses Aspiration of foreign body into lower respiratory tract T17.808A Globus sensation R09.A2
--- NOTE | 2023-05-21 10:28 | PC.CHAP ---
Pastoral Care Encounter/Spiritual Assessment Type of Contact [] Declined morgue keeper visit [] Patient/Family/Request visit [] Outpatient visit [] Follow-up visit [] Physician referral [] Code/Alert [x] Routine visit [] Staff referral [] Actively dying [] Patient sleeping [] Family support [] [] Out of room [] Palliative care [] [x] Receiving care in room [] Pre-surgical visit [] Trauma [] Long length of stay [] ICU visit [] Other: Relational/Emotional Strength [x] Patient feels connected with others/family/visitors/staff [] Distress [] Loneliness/isolation [] Abandonment Spirituality of Patient [x] Person of [place] [] Attends Hindu of their [place] [x] Believes in Prayer [] Reads Bible or Judaism materials [] There are Spiritual issues to be addressed Procedures Analyst Interventions [x] Prayer [x] Active listening [x] Non-anxious presence [x] Spiritual/emotional support [] Crisis/trauma care [x] Spiritual counseling [] Bereavement support [] Provided bereavement packet [] Provided Bible/devotional materials [] Provided toy/stuffed animal, coloring book to patient or family member [] Provided Communion [] Anointing/[place] [] Salvation [x] Completed spiritual assessment [] Other: Impact on Illness or Injury [] Angry [] Fearful [] Anxious [] Often cries [] Exhaustion [] Unable to work [] Unable to attend church [] Unable to walk/stand [] Unable to read [] Unable to drive [] Unable to eat/drink [] Unable to sleep [] Unable to be with family [] Patient intubated [] Other: Summary food blockage waiting for it to clear +1 has agood attude well go home Time spent with patient 10 mins
[2023-05-21] MEDS: sodium chloride 0.9% 1,000 ML 30 ML IV (11:20)
--- NOTE | 2023-05-21 11:22 | ANES.PREANE2 ---
Pre-Anesthetic Assessment Height/Weight: Height 1.52 m Weight 97.069 kg Temp Pulse Resp BP Pulse Ox O2 Del Method 97.7 F 93 18 126/85 96 Room Air 05/21/23 11:21 05/21/23 11:21 05/21/23 11:21 05/21/23 11:21 05/21/23 11:21 05/21/23 11:21 Preop Diagnosis: foreign body Operation Date: 05/21/23 12:05 Proposed Procedures p Bronchoscopy Bronchoscopy For Airway Clearence/Foreign Body Removal(Not Applicable) - Sherman [place] DatarMD Familial anesthetic complications: No family hx of anesthesia complications. Pt states she woke up during gallbladder surgery in 2001 Was Beta Una taken within 24 hours: N/A Was Clonidine taken within 24 hours: N/A Last intake: 05/21/23: solid @1900 liquid @ 2300 Social No alcohol and No tobacco Exam alert, oriented x 3 and clear to auscultation bilaterally Airway Submandibular: within normal limits Mallampati: Class II Dentition: full History/ROS No significant history except as noted Pulmonary Sleep Apnea (wears CPAP at home) CV/HEM Hypertension None reported Hepatic None reported GI None reported Metabolic Morbid Obesity Musc/skel Lower Back Pain (chronic pain) Neuropsych Anxiety Anesthetic Plan ASA status: 3 Anesthesia: Anesthesia Evaluation and General Risk of > 500 ml blood loss (7ml/kg in children): No Medications/Allergies Home Medications Medication Instructions Recorded Confirmed Last Taken Type cholecalciferol (vitamin D3) 1,250 1,250 mcg PO Q7D 04/30/22 05/21/23 05/15/23 History mcg (50,000 unit) capsule montelukast 10 mg tablet 10 mg PO DAILY PRN Allergy Symptoms 11/11/22 05/21/23 11/10/22 History (Singulair) acetaminophen 325 mg capsule 325 mg PO Q4H PRN fever or pain 11/14/22 05/21/23 Unknown Rx #60 caps fenofibrate nanocrystallized 145 145 mg PO BEDTIME 12/02/22 05/21/23 2 Weeks Ago History mg tablet ~11/18/22 lidocaine 5 % topical ointment See Rx Instructions .Route .COMPLEX 12/02/22 05/21/23 Unknown History ondansetron 4 mg disintegrating 4 mg PO Q8H PRN nausea and 12/02/22 05/21/23 Unknown Rx tablet vomiting #15 tabs ibuprofen 800 mg tablet 800 mg PO Q8H PRN Pain 01/13/23 05/21/23 2 Weeks Ago History ~05/07/23 estradiol 0.01% (0.1 mg/gram) 1 g vaginal DAILY #42.5 grams 02/19/23 05/21/23 05/18/23 Rx vaginal cream oxybutynin chloride 5 mg 5 mg PO DAILY #30 tabs 02/19/23 05/21/23 Unknown Rx tablet,extended release 24 hr estradiol 1 mg tablet 1 mg PO DAILY #90 tabs 02/27/23 05/21/23 05/19/23 Rx apple cider vinegar 300 mg tablet 300 mg PO QAM 05/21/23 05/21/23 05/18/23 History cinnamon bark 500 mg capsule 500 mg PO QAM 05/21/23 05/21/23 05/18/23 History (Cinnamon) omega-3 fatty acids-fish oil 684 1 cap PO QAM 05/21/23 05/21/23 05/18/23 History mg-1,200 mg capsule,delayed release oxycodone-acetaminophen 7.5 mg-325 1 - 2 tab PO Q4H PRN Pain 05/21/23 05/21/23 05/20/23 History mg tablet vitamin B complex 1 tab PO QAM 05/21/23 05/21/23 05/18/23 History vitamin E 268 mg (400 unit) capsule 268 mg PO QAM 05/21/23 05/21/23 05/18/23 History Allergies Allergy/AdvReac Type Severity Reaction Status Date / Time prochlorperazine Allergy angry Verified 04/02/23 08:59 [From Compazine] Current Medications Generic Name Dose Route Start Last Admin Trade Name Freq PRN Reason Stop Dose Admin Dexamethasone 6 mg 05/20/23 22:07 05/20/23 22:30 Dexamethasone 10 Mg/Ml Inj IVP 6 mg Q24H KEKE Administration Dextrose/Sodium Chloride 1,000 mls @ 100 mls/hr 05/20/23 22:07 05/20/23 22:31 Dextrose 5%-Sod Chloride 0.9% IV 100 mls/hr .Q10H KEKE Administration Sodium Chloride 1,000 mls @ 30 mls/hr 05/21/23 11:00 05/21/23 11:20 Sodium Chloride 0.9% IV 05/22/23 10:59 30 mls/hr .Q24H KEKE Administration Pantoprazole Sodium 40 mg 05/20/23 22:07 05/20/23 22:31 Pantoprazole 40 Mg Sdv IVP 40 mg Q24H KEKE Administration PFSH Anesthesia Medical History Cervical spondylosis with radiculopathy Chronic back pain High cholesterol No pertinent past medical history neghx: htn,dm,thyroid,dvt/pe PCP: Mar Hughes Polyp of cervix Surgical History H/O tubal ligation History of cholecystectomy History of hysterectomy (~11/13/22) TVH, single incision mid urethral sling, cystoscopy performed at [facility] by Dr. Bartlett for cystocele and uterine prolapse. Family History Mother Diabetes Hypertension Cancer Father Lung disease Family/Other Cancer breast cancer, Family/Other Cancer pre-cancer of the colon Social History Smoking and tobacco status: never smoked Alcohol intake: never Substance/Drug Use: never Data Anesthesia 05/20/23 20:15 05/20/23 20:15 Short CBC 05/20/23 Range/Units 20:15 WBC 6.27 (3.29-11.43) 10^3/uL Hgb 11.70 (11.27-16.99) g/dL Hct 34.3 L (36-47) % MCV 88.9 (85-98) fl Plt Count 390 (157-399) 10^3/cmm Neut % (Auto) 55.2 % Neut # (Auto) 3.46 (1.8-7.7) 10^3/uL BMP 05/20/23 20:15 Sodium 137 Potassium 3.9 Chloride 101 Carbon Dioxide 23 BUN 11 Creatinine 0.9 Glucose 148 H Calcium 9.7 Liver Function 05/20/23 Range/Units 20:15 Total Bilirubin 0.5 (0.15-1.2) mg/dL AST 27 (0-32) U/L ALT 31 (0-33) U/L Alkaline Phosphatase 59 (35-105) U/L Albumin 4.2 (3.5-5.2) g/dL Cardiac Studies: No Data to Display
[2023-05-21] MEDS: lidocaine 1% INJ 10 mL (per mL) XX (12:31)
--- NOTE | 2023-05-21 12:46 | PM.OP ---
Operative Report Date of procedure: May 21, 2023 Pre-op diagnosis: Suspected foreign body aspiration Post-op diagnosis: No foreign body Procedure done: 72427 Dx Bronchoscope w/Washings or airway inspection 03978 Dx Bronchoscope w/BAL 68782 Bronchoscopy w/ therapeutic aspiration of the tracheobronchial tree (clearance of airway secretions, removal of mucus plugs) Surgeon: Sherman Gunn MD Brief History: Oswald Conner is a 52 year old female presented to emergency room with foreign object in airway.? She stated eating popcorn approximately 30 minutes prior to arriving to ER and inhaled popcorn. She was reporting shortness of breath and dyspnea.? Denied any chest pain. ?she continued to have severe coughing fits and has globus sensation, associated hoarseness of voice in her voice. ER physician consulted Pulmonary service for bronchoscopic evaluation and as patient is hemodynamically stable and pulmonology not on-call for the night-she was admitted for overnight observation and pulmonary evaluation the next day. I have seen patient at bedside today morning- She did admit aspirating popcorn kernel-however she has some concerns about anesthesia prior to bronchoscopy as that she underwent surgical procedure earlier this year at this hospital and has difficulty waking up from surgery.? She also mentioned that her cough has improved but she is not sure if she has coughed up the popcorn kernel.? States her globus sensation in throat is better as well as hoarseness of voice is better. She is scheduled for bronchoscopic evaluation of her airways for suspected aspirated foreign body and possible retrieval. Procedure: Procedure : 36853 Dx Bronchoscope w/Washings or airway inspection 93961 Dx Bronchoscope w/BAL 55813 Bronchoscopy w/ therapeutic aspiration of the tracheobronchial tree (clearance of airway secretions, removal of mucus plugs) Pre-Operative Diagnosis: Suspected foreign body aspiration Post-Operative Diagnosis: Same Indication: Patient presented to emergency room yesterday with complaint of aspiration of popcorn kernel followed by bouts of cough. Consent: Consents were obtained from patient and placed in the chart Pre-procedure Evaluation: Patient was evaluated clinically and ancillary testing reviewed. The risk of having active MTB infection is very low in my clinical judgement. ASA: 3 Malampati score: unable to evaluate due to presence of endotracheal tube Time out: Performed by the procedure team and nursing staff. . Anesthesia: Managed as per anesthesia team Local anesthesia: The ginny in the right and left mainstem bronchi were anesthetized with 1% lidocaine, 3 mL. Summary of Significant Findings: -Bronchoscope passed through ET tube used for initial inspection (49892) and airway clearance. The scope was advanced through the ET tube. The lower trachea mucosa appeared normal, no endotracheal lesion was seen. The ginny was sharp. The ginny, the right and left mainstem bronchi are anesthetized with 1% lidocaine. The bronchoscope was then introduced into the right mainstem bronchus. The right upper lobe, right middle lobe and right lower lobe bronchi were examined up to the third subsegmental level and no abnormalities were identified. The mucosa appeared normal with no endobronchial lesions, active bleeding. There were some secretions which were suctioned right away([id number]). No foreign body identified. In a systematic manner bilateral bronchial tree was then examined. The bronchoscope was advanced into the left mainstem bronchus. The mucosa appeared normal with no endobronchial lesions. The left upper lobe, lingula and left lower lobe bronchi were examined up to the third subsegmental level and no abnormalities were identified. Mucosa appeared normal with no endobronchial lesion, active bleeding or mucous plug. There were some clear secretions in lower lobe-which were suctioned right away. No foreign body identified. Estimated Blood Loss: None Specimens: None Complications:None; patient tolerated the procedure well. Disposition: Patient will be extubated by anesthesia team and transferred to floor. Surgeon: Sherman Gunn MD, [facility] Pulmonary critical Care Medicine [facility]
--- NOTE | 2023-05-21 13:20 | ANE.PACU2 ---
Inpatient post-anesthesia follow up: Airway intact: Yes Vital signs: Temperature 97.8 F Pulse Rate 94 Respiratory Rate 16 Blood Pressure 154/80 Pulse Oximetry 97 Oxygen Delivery Me thod Room Air Oxygen Flow Rate Fraction of Inspir ed Oxygen Hydration adequate: Yes Nausea and vomiting: No Pain level: 2 Mental status: Baseline
== END 2023-05-21 17:32 | disposition home or self-care (01) ==
LOC: ER 21:14 → MEDSURG 05-21 06:00
PROVIDERS: Internal Medicine Pulmonary Disease; Admitting Provider Family Medicine; Emergency Provider Emergency Medicine; PCP Nurse Practitioner Family; Visit Provider Family Medicine
PROC: 0BJ08ZZ Inspection of Tracheobronchial Tree, Via Natural or Artificial Opening Endoscopic (ICD-10-PCS; CPT 31622; principal; 2023-05-21 12:00)
DX: T17.808A Unspecified foreign body in other parts of respiratory tract causing other injury, initial encounter (principal); R09.A2 Foreign body sensation, throat; I10 Essential (primary) hypertension; E66.01 Morbid (severe) obesity due to excess calories; Z68.41 Body mass index [BMI] 40.0-44.9, adult; G47.33 Obstructive sleep apnea (adult) (pediatric)
CPT/HCPCS: 31624; 31645; 71045; 80053; 85025; 94640; 94664; 96374; 96375; 99285; C9113; G0378; J0330; J1100; J2250; J2405; J2704; J3010; J3490; J7030; J7042

== ENCOUNTER → 2023-06-02 14:04 | Outpatient (BNVA) | payer MEDICAID, SELFPAY | PROVIDERS: PCP Nurse Practitioner Family; Visit Provider Internal Medicine Pulmonary Disease | DX: G47.33 Obstructive sleep apnea (adult) (pediatric) (principal); J40 Bronchitis, not specified as acute or chronic; Z87.891 Personal history of nicotine dependence; Z09 Encounter for follow-up examination after completed treatment for conditions other than malignant neoplasm; Z12.2 Encounter for screening for malignant neoplasm of respiratory organs; Z99.89 Dependence on other enabling machines and devices | CPT/HCPCS: 99204 ==

== ENCOUNTER 2023-07-01 06:57 | Outpatient (CLI) | payer MEDICAID, SELFPAY ==
--- NOTE | 2023-07-01 07:30 | CT_ITS ---
WS: [id number] LDCT LUNG CANCER SCREENING TECHNIQUE: Noncontrast CT of the chest with coronal and sagittal reformatted images. CLINICAL INFORMATION: Cancer Screen COMPARISON: None. DLP: 106.51 mGy.cm DIvol: Mean CTDIvol: 2.50 (mGy) All CT scans at [facility] use at least one of these dose optimization techniques: automat ed exposure control; mA and/or kV adjustment per patient size (includes targeted exams where dose is matched to clinical indication); or iterative reconstruction. FINDINGS:Tiny subpleural nodule in the RIGHT middle lobe Normal caliber thoracic aorta. Ovoid nodule RIGHT breast measuring 1.3 cm. This is in the lower outer quadrant. Recommend RIGHT diagnostic mammography and ultrasound in further evaluation. Adrenal glands are normal. Cholecystectomy clips. Normal GE junction. Small splenule. Hypertrophic ch anges thoracic spine. Severe LEFT bony foraminal narrowing with mild central canal stenosis at T12-L1 with LEFT subarticular and proximal foraminal disc osteophyte protrusion. IMPRESSION: Ovoid nodule RIGHT breast measuring 1.3 x 1.1 cm. This is in the lower outer quadrant. Recommend RIGH T diagnostic mammography and ultrasound in further evaluation. CT/CT lung screening [id number] LUNG-RADS: 2S-Benign Appearance or Behavior with Significant Findings FOLLOW UP: 12 Month: Continue annual screening with LDCT
[2023-07-01 08:14] VITALS: PULSE 88; RESP 18; O2SAT 99
[2023-07-01] MEDS: albuterol 2.5 mg/3 mL Neb INHALATION (08:14)
[2023-07-01 08:18] VITALS: PULSE 98
== END 2023-07-01 06:58 | disposition home or self-care (01) ==
LOC: RAD 06:58
PROVIDERS: PCP Nurse Practitioner Family; Visit Provider Internal Medicine Pulmonary Disease
DX: Z12.2 Encounter for screening for malignant neoplasm of respiratory organs (principal); Z87.891 Personal history of nicotine dependence; R06.02 Shortness of breath; R94.2 Abnormal results of pulmonary function studies
CPT/HCPCS: 71271; 94060; 94729; J7613

== ENCOUNTER 2023-08-20 13:41 | Outpatient (CLI) | payer MEDICAID, SELFPAY ==
--- NOTE | 2023-08-20 13:57 | MM_ITS ---
WS: [id number] BILATERAL 3D TOMOSYNTHESIS DIGITAL DIAGNOSTIC MAMMOGRAPHY WITH CAD CLINICAL INFORMATION: BREAST LUMP/MASS/ABNORMAL CT CHEST HISTORY: Lesion seen on CT lung screening COMPARISON: 08/25/2022 TECHNIQUE: Bilateral CC, MLO, and ML views. FINDINGS: Scattered fibroglandular densities bilaterally. Previous described lobulated lesion mid depth RIGHT b reast measuring 14 mm is stable compared to 08/25/2022.. Ultrasound RIGHT breast is pending. Stable nod ular densities upper outer LEFT breast previously demonstrated to represent simple and complex cystic lesions. Biopsy clip upper outer LEFT breast. ULTRASOUND BREAST RIGHT TECHNIQUE: Ultrasound right breast focused area of concern. CLINICAL INFORMATION: BREAST LUMP/MASS/ABNORMAL CT CHEST COMPARISON: 2019 FINDINGS: Ultrasound RIGHT breast at the 10 o'clock position 2 cm from the nipple demonstrates a lobulated simp le cyst likely corresponding to the finding seen on the CT. This corresponds to the lobulated lesion RIGHT breast seen on the mammogram. In comparison to the prior ultrasound 2019 this is similar in appearance. IMPRESSION: MM/[place] [id number] BI-RADS: 2-Benign FOLLOW UP: 1 Year Follow-up Recommend return to annual screening mammography.
== END 2023-08-20 13:42 | disposition home or self-care (01) ==
LOC: RAD 13:41
PROVIDERS: PCP Nurse Practitioner Family; Visit Provider Nurse Practitioner Family
DX: N63.11 Unspecified lump in the right breast, upper outer quadrant (principal); R91.8 Other nonspecific abnormal finding of lung field
CPT/HCPCS: 76642; 77062; G0279

== ENCOUNTER → 2023-08-25 12:16 | Outpatient (BNVA) | payer MEDICAID, SELFPAY | PROVIDERS: PCP Nurse Practitioner Family; Visit Provider Internal Medicine Pulmonary Disease | DX: J44.89 Other specified chronic obstructive pulmonary disease (principal); Z87.891 Personal history of nicotine dependence; Z12.2 Encounter for screening for malignant neoplasm of respiratory organs; R91.1 Solitary pulmonary nodule | CPT/HCPCS: 99214 ==

== ENCOUNTER → 2023-09-28 08:50 | Outpatient (BNVA) | payer MEDICAID, SELFPAY | PROVIDERS: PCP Nurse Practitioner Family; Visit Provider Podiatrist Foot & Ankle Surgery | DX: M76.61 Achilles tendinitis, right leg | CPT/HCPCS: 73630; 99203 ==

== ENCOUNTER 2024-01-15 08:44 | Outpatient (CLI) | payer MEDICAID, SELFPAY ==
--- NOTE | 2024-01-15 08:51 | CT_ITS ---
WS: [id number] CT HEAD TECHNIQUE: Noncontrast and contrast-enhanced CT of the head. CLINICAL INFORMATION: COGNITIVE CHANGES COMPARISON: 12/02/2022 DLP: 2170.[address] scans at [facility] use at least one of these dose optimization techniques: automated e xposure control; mA and/or kV adjustment per patient size (includes targeted exams where dose is matc hed to clinical indication); or iterative reconstruction. FINDINGS: No evidence intracranial hemorrhage or mass effect. Ventricular system and basal cisterns are patent. No significant parenchymal volume loss. Incidental slightly low-lying cerebellar tonsils. Normal fourth ventricle. Mild cavernous carotid fariba cification. No abnormal intracranial enhancement. Paranasal sinuses and mastoid air cells are well aerated. Retention cyst LEFT maxillary sinus measuri ng [address]/CT head wo/w con [id number] IMPRESSION: 1. No acute intracranial findings. 2. Mild small vessel changes. No significant parenchymal volume loss. 3. Mild cavernous carotid calcification. 4. No abnormal intracranial enhancement.
[2024-01-15] MEDS: iohexol 350 mg/mL 500 mL Btl (per mL) IV (09:32)
== END 2024-01-15 08:45 | disposition home or self-care (01) ==
LOC: RAD 08:44
PROVIDERS: PCP Nurse Practitioner Family; Visit Provider Nurse Practitioner Family
DX: R41.89 Other symptoms and signs involving cognitive functions and awareness (principal)
CPT/HCPCS: 70470; Q9967

== ENCOUNTER 2024-02-08 21:58 | Emergency (ER) | payer MEDICAID, SELFPAY ==
[2024-02-08 22:03] VITALS: BP 165/85; PULSE 106; RESP 18; TEMP 36.6; O2SAT 96
--- NOTE | 2024-02-09 00:03 | W.ED.FEMALGU ---
HPI - Female Genitourinary General: Chief complaint: Urogenital-Female Stated complaint: Bladder pain Time Seen by Provider: 02/08/24 23:47 History of Present Illness: Patient presents to the ER with something bulging out of her vagina when she wiped. Patient pushed it back up and is now congested and uncomfortable. Patient states she is never had this before. Patient has had a hysterectomy with Dr. Bartlett in the [id number] past. Patient denies any other issues at this moment. Review of Systems General: Reports: 10 or more systems reviewed and unremarkable except in HPI and below PFSH ED PFSH: Medical History PRANAY (obstructive sleep apnea) Globus sensation Aspiration of foreign body into lower respiratory tract Polyp of cervix Chronic back pain No pertinent past medical history neghx: htn,dm,thyroid,dvt/pe PCP: Mar Hughes High cholesterol Cervical spondylosis with radiculopathy Surgical History History of hysterectomy (~11/13/22) TVH, single incision mid urethral sling, cystoscopy performed at [facility] by Dr. Bartlett for cystocele and uterine prolapse. History of cholecystectomy H/O tubal ligation Family History Mother Diabetes Hypertension Cancer Father Lung disease Family/Other Cancer breast cancer, Family/Other Cancer pre-cancer of the colon Social History Smoking and tobacco/nicotine status: former use of tobacco/nicotine Quit status (tobacco/nicotine): has quit using Year quit tobacco: 2009 Former quit date comment: 1 ppd X 20 years Alcohol intake: never Substance/Drug Use: never Physical Exam Const: COMMON NORMALS: no acute distress, average body habitus, patient oriented x3, no limitations, healthy appearing, alert and well nourished Neck/C-Spine: COMMON NORMALS: no JVD Chest: COMMONS NORMALS: normal inspection of the chest and normal palpation of entire chest wall Resp: COMMON NORMALS: normal respiratory effort, No retractions, No use of accessory muscles and clear to auscultation bilaterally AUSCULTATION: clear to auscultation bilaterally Cardio: COMMON NORMALS: no JVD, regular rate, regular rhythm, S1 normal heart sound present, S2 normal heart sound present, No gallops present (Cardio), No clicks present (Cardio), No murmurs present (Cardio) and No rub (Cardio) RATE: regular rate RHYTHM: regular rhythm HEART SOUNDS: S1 normal heart sound present and S2 normal heart sound present : OTHER: Patient declined vaginal exam at this time. Neuro: COMMON NORMALS: patient oriented x3 SENSORIUM/ORIENTATION: Yes alert Course Vital Signs: Vital signs: Vital Signs Temperature 97.8 F 02/08/24 22:03 Pulse Rate 106 H 02/08/24 22:03 Respiratory Rate 18 02/08/24 22:03 Blood Pressure 165/85 02/08/24 22:03 Pulse Oximetry 96 02/08/24 22:03 Oxygen Delivery Me thod Room Air 02/08/24 22:03 MDM - Female Medical Decision Making Patient presents with what sounds like a vaginal prolapse of some sort. This was discussed with the patient at length. Patient declined genital examination at this time and will be referred back to Dr. Fonseca. Patient will be calling their office first thing in the morning. It was discussed with the patient that it sounds like a vaginal prolapse of some sort however we cannot be for sure without looking. Patient still prefers not to look in nose is very drastically limits her examination capabilities. Differential Diagnosis Unlikely abdominal pain, acute appendicitis, calculus of kidney, constipation, diverticulitis, endometriosis, gastroenteritis, pancreatitis or small bowel obstruction Medical Records I reviewed the patient's medical records. Lab Data I reviewed the patient's lab results. No radiology studies performed this visit Discharge Plan Discharge Patient Disposition: Home Clinical Impression: Prolapse of vaginal wall Condition: Stable Prescriptions: No Action cholecalciferol (vitamin D3) 1,250 mcg (50,000 unit) capsule 1,250 mcg PO Q7D Rx Instructions: on Thursday ibuprofen 800 mg tablet 800 mg PO Q8H PRN (Reason: Pain) estradiol 1 mg tablet 1 mg PO DAILY Qty: 90 3RF estradiol 0.01 % (0.1 mg/gram) cream 1 g vaginal DAILY Qty: 42.5 3RF albuterol sulfate [Ventolin HFA] 90 mcg/actuation HFA aerosol inhaler 1 inh inhalation QID PRN (Reason: shortness of breath or wheezing) Qty: 8.5 4RF montelukast [Singulair] 10 mg tablet 10 mg PO DAILY PRN (Reason: Allergy Symptoms) acetaminophen 325 mg capsule 325 mg PO Q4H PRN (Reason: fever or pain) Qty: 60 0RF lidocaine 5 % ointment See Rx Instructions .ROUTE .COMPLEX Rx Instructions: APPLY TOPICALLY EVERY 4 HOURS FOR 12 HOURS THEN ALL OINTMENT OFF FOR 12 HOURS NEEDED ondansetron 4 mg tablet,disintegrating 4 mg PO Q8H PRN (Reason: nausea and vomiting) Qty: 15 0RF oxycodone-acetaminophen 7.5-325 mg tablet 1 - 2 tab PO Q4H PRN (Reason: Pain) Rx Instructions: max 6 per day vitamin B complex Tablet 1 tab PO QAM vitamin E 268 mg (400 unit) Capsule 268 mg PO QAM apple cider vinegar 300 mg Tablet 300 mg PO QAM omega-3 fatty acids-fish oil 684-1,200 mg Capsule,Delayed Release(Dr/Ec) 1 cap PO QAM Discharge Orders: Discharge ED (Routine); Ordered 02/09/24 Ordered By: Yung Augustin Referrals: Mar Jose, [employer] [Primary Care Provider] - 1 week Activity Restrictions/Additional Instructions: Upon talking to it sounds like you have a vaginal wall prolapse of some sort. Your exam was limited due tonot visually inspecting your vaginal area, Please call Dr. Bartlett's office first thing tomorrow morning to schedule follow-up for further evaluation and treatment. If your condition worsens or changes please feel free to return to the ER for further evaluation and treatment. Coding Level of Care Code ED [employer] Test Technician for Donavon Alexandre
== END 2024-02-09 00:14 | disposition home or self-care (01) ==
PROVIDERS: Emergency Provider Emergency Medicine; PCP Nurse Practitioner Family
DX: N81.10 Cystocele, unspecified (principal); Z87.891 Personal history of nicotine dependence
CPT/HCPCS: 99281

== ENCOUNTER 2024-02-22 11:35 | Outpatient (CLI) | payer MEDICAID, SELFPAY ==
--- NOTE | 2024-02-22 11:42 | XR_ITS ---
WS: [id number] Right hip, AP and frog-leg views, 02/22/2024 Clinical Data: R HIP PAIN Comparison: None. Findings: No fractures or dislocations are seen. The right hip joint is intact with no erosion, sclerosis, narr owing or fragmentation of the right femoral head. The soft tissues are not remarkable. The adjacent p brigitte is normal. There is a small acetabular lip. XR/XR hip RT 2-3V wo/w pel* [id number] Impression: Small right acetabular lip. Tonnis classification: grade 1: sclerosis of femoral head and acetabulum or sli ght joint space narrowing or slight lipping at joint margins
--- NOTE | 2024-02-22 11:42 | XR_ITS ---
WS: [id number] Right knee, 4 views, 02/22/2024 Clinical Data: R KNEE PAIN Comparison: None. Findings: No fractures or dislocations are seen. The joint spaces are normal. The patella shows minimal posteri or spurring. The soft tissues are unremarkable. XR/XR knee RT 4V [id number] Impression: Negative right knee. Kellgren-Juan Diego Classification: grade 1 (doubtful): doubtful joint space narr owing and possible osteophytic lipping
== END 2024-02-22 11:36 | disposition home or self-care (01) ==
PROVIDERS: PCP Nurse Practitioner Family; Visit Provider Nurse Practitioner Family
DX: M25.561 Pain in right knee (principal); M25.551 Pain in right hip
CPT/HCPCS: 73502; 73564

== ENCOUNTER → 2024-03-09 13:57 | Outpatient (BNVA) | payer MEDICAID, SELFPAY | PROVIDERS: PCP Nurse Practitioner Family; Visit Provider Specialist | DX: M16.11 Unilateral primary osteoarthritis, right hip (principal); M25.551 Pain in right hip | CPT/HCPCS: 73502; 99204 ==

== ENCOUNTER → 2025-02-13 09:13 | Outpatient (BNVA) | payer MEDICAID, SELFPAY | PROVIDERS: PCP Nurse Practitioner Family; Visit Provider Nurse Practitioner | DX: M25.532 Pain in left wrist (principal) | CPT/HCPCS: 73110 ==

== ENCOUNTER → 2025-04-27 14:08 | Outpatient (BNVA) | payer MEDICAID, SELFPAY | PROVIDERS: PCP Nurse Practitioner Family; Referring Provider Nurse Practitioner; Visit Provider Specialist | DX: G56.01 Carpal tunnel syndrome, right upper limb (principal); R20.2 Paresthesia of skin | CPT/HCPCS: 95911 ==

== ENCOUNTER → 2025-05-08 08:49 | Outpatient (BNVA) | payer MEDICAID, SELFPAY | PROVIDERS: PCP Nurse Practitioner Family; Visit Provider Nurse Practitioner | DX: G56.01 Carpal tunnel syndrome, right upper limb (principal); Z46.89 Encounter for fitting and adjustment of other specified devices | CPT/HCPCS: 99214 ==

== ENCOUNTER → 2025-07-05 16:21 | Outpatient (BNVA) | payer MEDICAID, SELFPAY | PROVIDERS: PCP Nurse Practitioner Family; Visit Provider Registered Nurse Neonatal Intensive Care | DX: R53.83 Other fatigue (principal) | CPT/HCPCS: 87400 ==

== ENCOUNTER 2025-08-11 13:59 | Outpatient (CLI) | payer MEDICAID, SELFPAY ==
--- NOTE | 2025-08-11 14:08 | CTR_ITS ---
PROCEDURE INFORMATION: Exam: CT Cervical Spine Without Contrast Exam date and time: 08/11/2025 2:13 PM Age: 54 years old Clinical indication: Condition or disease; Disc radiculopathy; Additional info: Cervical disc disorder with radiculopathy TECHNIQUE: Imaging protocol: Computed tomography of the cervical spine without contrast. Radiation optimization: All CT scans at this facility use at least one of these dose optimization techniques: automated exposure control; mA and/or kV adjustment per patient size (includes targeted exams where dose is matched to clinical indication); or iterative reconstruction. COMPARISON: CT cervical spin 03/18/2023 RADIATION DOSE METRICS: Total DLP (mGy-cm): 625.17 FINDINGS: Bones/joints: Loss of normal lordosis, yefo-dx-jqagpyaj disc narrowing, uncovertebral spurring, facet arthrosis, a few small posterior disc osteophytes, and slight anterolisthesis at C4-C5 are unchanged, causing: C2-C3: Mild-moderate left foraminal narrowing. Moderate thecal sac narrowing. C3-C4: Severe left and moderate right foraminal narrowing. Moderate thecal sac narrowing. C4-C5: Severe left and mild right foraminal narrowing. Mild thecal sac narrowing. C5-C6: Severe bilateral foraminal narrowing. Moderate thecal sac narrowing. C6-C7: Severe right and moderate left foraminal narrowing. Moderate thecal sac narrowing. C7-T1: Moderate right and mild left foraminal narrowing. Mild thecal sac narrowing. Lungs: Unremarkable apices. Soft tissues: Unremarkable. CT/CT cervical spin wo con* [id number] IMPRESSION: Unchanged multilevel central stenosis (congenital/acquired) and foraminal compromise.
--- NOTE | 2025-08-11 14:09 | CTR_ITS ---
PROCEDURE INFORMATION: Exam: CT Lumbar Spine Without Contrast Exam date and time: 08/11/2025 2:16 PM Age: 54 years old Clinical indication: Condition or disease; Spondylosis, lumbosacral; Lumbar region; Additional info: Spondylosis with radiculopathy TECHNIQUE: Imaging protocol: Computed tomography of the lumbar spine without contrast. Radiation optimization: All CT scans at this facility use at least one of these dose optimization techniques: automated exposure control; mA and/or kV adjustment per patient size (includes targeted exams where dose is matched to clinical indication); or iterative reconstruction. COMPARISON: CR XR hip RT 2-3V wo/w pel* [id number] 03/09/2024 2:17 PM RADIATION DOSE METRICS: Total DLP (mGy-cm): 1500.3 FINDINGS: Bones/joints: No acute fracture. Normal alignment. No significant disc bulge or herniation. No severe spinal canal stenosis. No significant neural foraminal narrowing. There is mild levoscoliosis of the lumbar spine centered at L2-L3. There is anterior marginal osteophytosis at L1-S1. Disc spaces/neural foramina/spinal canal: There is no spinal canal or neural foraminal stenosis. The facet joints are intact. There is a posterior osteophytic disc complex at T12-L1 causing severe spinal canal stenosis with severe left neural foraminal stenosis. The other levels are intact. Soft tissues: Unremarkable. Retroperitoneum:The retroperitoneum is unremarkable. There are no renal masses. There is aortic atherosclerosis. There has been a cholecystectomy. There are small nonobstructing calculi in the left kidney and a 1 cm cyst in the right kidney. CT/CT lumbar spine wo con* [id number] IMPRESSION: 1. No acute fracture or traumatic subluxation. 2. Large posterior disc osteophyte complex at T12-L1 causing severe spinal canal stenosis and severe left neural foraminal stenosis. This could be better evaluated with MRI of the lumbar spine. 3. Left renal nonobstructing calculi. 4. Small right renal cyst. Bosniak I and II: No follow-up is typically required unless the cyst becomes symptomatic. These cysts are considered benign and have a very low risk of malignancy. COMMENTS: Consistent with the [employer]'s Incidental Findings Committee white paper (J Am Idalia Radiol 2018): Any incidental renal lesion less than 1 cm or classified as too small to characterize, or any incidental cystic renal lesion characterized as simple-appearing, is likely benign. No follow-up imaging is recommended for these lesions per consensus recommendations based on imaging criteria.
== END 2025-08-11 14:00 | disposition home or self-care (01) ==
LOC: RAD 14:00
PROVIDERS: PCP Nurse Practitioner Family; Visit Provider Nurse Practitioner Family
DX: M50.10 Cervical disc disorder with radiculopathy, unspecified cervical region (principal); M48.05 Spinal stenosis, thoracolumbar region; M48.02 Spinal stenosis, cervical region; M48.03 Spinal stenosis, cervicothoracic region; M41.9 Scoliosis, unspecified; M25.78 Osteophyte, vertebrae; Z90.49 Acquired absence of other specified parts of digestive tract; N20.0 Calculus of kidney; N28.1 Cyst of kidney, acquired
CPT/HCPCS: 72125; 72131